=== PATIENT | female | born 1990 | race Hispanic/Latino ===

== ENCOUNTER 2022-02-22 18:20 | Emergency (ER) | payer SELFPAY ==
--- OUTSIDE RECORDS SUMMARY | 2022-02-22 18:24 | XMS REPORT | Continuity of Care Document ---
:1990 Author Organization [facility] t Address [address] [place] [address] Care Team Providers Name Role Phone FERNANDA ESPINOSA Primary Care Physician Unavailable LONI RAMIREZ Attending Clinician Unavailable Loni Ramirez DO Attending Clinician Doctor Unassigned, [place] Attending Clinician Unavailable BLAS Attending Clinician Unavailable VIET PASCUAL Attending Clinician Unavailable CODI RODRIGUES Attending Clinician Unavailable VIKTORIYA QUIROZ Attending Clinician Unavailable RANULFO BERG Attending Clinician Unavailable JULIUS LO Attending Clinician Unavailable BLAS Admitting Clinician Unavailable Payers Payer Name Policy Type Policy Number Effective Date Expiration Date S [facility] - [id number] 2019 00:00:00 OUT OF STATE Problems Condition Condition Condition Status Onset Resolution Last Treating Co mments Source Name Details Category Date Date Treatment Clinician Date No known No known Disease Unive rs active active ity of problems problems [facility] Allergies, Adverse Reactions, Alerts Allergy Allergy Status Severity Reaction(s) Onset Inactive Treating Comm ents Source Name Type Date Date Clinician NO KNOWN Drug Active Univers ALLERGIE Class ity of S [facility] Social History Social Habit Start Date Stop Date Quantity Comments Source History of tobacco Cigarette Smoker University of use [facility] Exposure to 2022-01-26 2022-02-05 Not sure [facility]-CoV-2 (event) 00:00:00 20:15:00 [facility] Alcohol intake 2022-02-05 2022-02-05 Ex-drinker [facility] 00:00:00 00:00:00 (finding) [facility] Cigarettes smoked 2020-02-11 2020-02-11 Univers ity of current (pack per 00:00:00 00:00:00 [facility] ) - Reported Branch Tobacco use and 2020-02-11 2020-02-11 Smokeless Universit y of exposure 00:00:00 00:00:00 tobacco non-user [facility] dical [place] Sex Assigned At [birth year] Universit y of 00:00:00 00:00:00 [facility] Smoking Status Start Date Stop Date Source Smokes tobacco daily 2020-02-11 00:00:00 Univers ity of [facility] Medications Ordered Filled Start Stop Current Ordering Indication Dosage Frequency Signature Comments Components Source Medication Medication Date Date Medication? Clinician (SIG) Name Name cyclobenzap 2021-04 Yes [id number] 10mg Take 1 Univers rine 10 mg 0-10 tablet by ity of tablet 00:00: mouth 3 [place] (three) Medical times [place] daily as needed for Muscle Spasms. TAKE 1 2021-0 No 50 TABLET 8-29 DAILY. 00:00: 00 TAKE 1 2021-0 No TABLET 8-29 DAILY. 00:00: 00 TAKE 1 2021-0 No TABLET 8-29 DAILY. 00:00: 00 TAKE 1 2021-0 No 5 TABLET BY 8-19 MOUTH 2 00:00: HOURS PRIOR 00 TO SURGERY. TAKE 1 2021-0 No 5 TABLET BY 8-19 MOUTH 2 00:00: HOURS PRIOR 00 TO SURGERY. TAKE 1 2021-0 No 5 TABLET BY 8-19 MOUTH 2 00:00: HOURS PRIOR 00 TO SURGERY. &lt 2022-0 No 250 8-04 00:00: 00 TAKE ONE 2-0 No 875 (1) 8-04 TABLET(S) 00:00: BY MOUTH 00 TWICE A DAY. &lt 2022-0 No 250 8-04 00:00: 00 &lt 2022-0 No 250 8-04 00:00: 00 TAKE ONE 2-0 No 875 (1) 8-04 TABLET(S) 00:00: BY MOUTH 00 TWICE A DAY. TAKE ONE 2-0 No 875 (1) 8-04 TABLET(S) 00:00: BY MOUTH 00 TWICE A DAY. Dose 2021-0 No Unknown 09-26 00:00: 00 Dose 2021-0 No Unknown 09-26 00:00: 00 Dose 2021-0 No Unknown 09-26 00:00: 00 Dose 2021-0 No Unknown 09-26 00:00: 00 Dose 2021-0 No Unknown 09-26 00:00: 00 Dose 2021-0 No Unknown 09-26 00:00: 00 Dose 2021-0 No Unknown 09-26 00:00: 00 Dose 2021-0 No Unknown 09-26 00:00: 00 Dose 2021-0 No Unknown 09-26 00:00: 00 Dose 2021-0 No Unknown 09-26 00:00: 00 Dose 2021-0 No Unknown 09-26 00:00: 00 Dose 2021-0 No Unknown 09-26 00:00: 00 benzonatate 2019- Yes [id number] 100mg Take 1 Univers (TESSALON 0-15 capsule by [employer]) 100 00:00: mouth 3 Naseem as mg capsule 00 (three) Medica l times Branch daily. benzonatate 2019-04 Yes [id number] 100mg Take 1 Univers (TESSALON 0-15 capsule by [employer]) 100 00:00: mouth 3 Naseem as mg capsule 00 (three) Medica l times Branch daily. Dose 2017-0 No Unknown 08-07 00:00: 00 ketoconazol 2017-0 No 1% e 2 % 08-07 topical 00:00: cream 00 Dose 2018-0 No Unknown 08-07 00:00: 00 Vital Signs Vital Name Observation Time Observation Value Comments Source Systolic blood 2022-02-06 01:16:00 120 [facility] Diastolic blood 2022-02-06 01:16:00 96 mm[Hg] [facility] Heart rate 2022-02-06 01:16:00 96 /min [facility] Body temperature 2022-02-06 01:16:00 36.89 [facility] Respiratory rate 2022-02-06 01:16:00 20 /min [facility] Body height 2022-02-06 01:16:00 160 cm [facility] Body weight 2022-02-06 01:16:00 127.461 kg [facility] BMI 2022-02-06 01:16:00 49.78 kg/m2 [facility] Oxygen saturation in 2022-02-06 01:16:00 98 /min University Arterial blood by [facility] Pulse oximetry Branch BP Systolic 2021-11-30 17:52:00 114 mm[Hg] BP Diastolic 2021-11-30 17:52:00 81 mm[Hg] Weight Measured 2021-11-30 17:52:00 292.40 pounds Height Measured 2021-11-30 17:52:00 63.50 inches Body Temperature 2021-11-30 17:52:00 98.10 degrees Heart Rate 2021-11-30 17:52:00 95.00 /min Respiratory Rate 2021-11-30 17:52:00 16.00 /min BP Systolic 2021-09-26 11:29:00 83 mm[Hg] BP Diastolic 2021-09-26 11:29:00 58 mm[Hg] Weight Measured 2021-09-26 11:29:00 293.40 pounds Height Measured 2021-09-26 11:29:00 63.50 inches Body Temperature 2021-09-26 11:29:00 97.80 degrees Heart Rate 2021-09-26 11:29:00 93.00 /min Respiratory Rate 2021-09-26 11:29:00 16.00 /min BP Systolic 2017-08-13 10:14:00 137 mm[Hg] BP Diastolic 2017-08-13 10:14:00 81 mm[Hg] Weight Measured 2017-08-13 10:14:00 283.00 pounds Height Measured 2017-08-13 10:14:00 63.50 inches Body Temperature 2017-08-13 10:14:00 97.70 degrees Heart Rate 2017-08-13 10:14:00 89.00 /min Respiratory Rate 2017-08-13 10:14:00 16.00 /min BP Systolic 2017-08-07 10:10:00 116 mm[Hg] BP Diastolic 2017-08-07 10:10:00 77 mm[Hg] Weight Measured 2017-08-07 10:10:00 282.00 pounds Height Measured 2017-08-07 10:10:00 63.50 inches Body Temperature 2017-08-07 10:10:00 98.50 degrees Heart Rate 2017-08-07 10:10:00 98.00 /min Respiratory Rate 2017-08-07 10:10:00 16.00 /min Procedures Procedure Date / Time Performed Performing Clinician [facility] liza NOTICE OF PRIVACY 2022-02-06 01:08:20 Doctor Unassigned, No Univ ersity [facility] PRACTICES Name Medical Branch CONSENT/REFUSAL FOR 2022-02-06 01:08:02 [facility] Branch TREATMENT Plan of Care Planned Activity Planned Date Details Comments Source Goal Plan of Care Note [code = 87501-9] Goal Plan of Care Note [code = 55260-2] Goal Plan of Care Note [code = 16537-5] Goal Plan of Care Note [code = 83155-9] Goal Plan of Care Note [code = 40142-0] Goal Plan of Care Note [code = 21924-8] Goal Plan of Care Note [code = 07060-8] Goal Plan of Care Note [code = 34385-7] Goal Plan of Care Note [code = 33745-1] Goal Plan of Care Note [code = 48509-4] Goal Plan of Care Note [code = 33393-0] Goal Plan of Care Note [code = 88358-0] Goal Plan of Care Note [code = 19118-1] Goal Plan of Care Note [code = 68529-8] Goal Plan of Care Note [code = 70366-8] Goal Plan of Care Note [code = 50604-9] Goal Plan of Care Note [code = 30651-2] Goal Plan of Care Note [code = 48521-4] Goal Plan of Care Note [code = 87901-5] Goal Plan of Care Note [code = 00875-0] Goal Plan of Care Note [code = 35746-6] Goal Plan of Care Note [code = 24722-4] Goal Plan of Care Note [code = 33079-1] Goal Plan of Care Note [code = 27591-8] Goal Plan of Care Note [code = 82631-9] Goal Plan of Care Note [code = 86191-9] Goal Plan of Care Note [code = 27508-4] Goal Plan of Care Note [code = 29122-6] Goal Plan of Care Note [code = 60094-4] Goal Plan of Care Note [code = 33599-5] Goal Plan of Care Note [code = 58122-9] Goal Plan of Care Note [code = 91338-0] Goal Plan of Care Note [code = 72225-7] Goal Plan of Care Note [code = 62134-3] Goal Plan of Care Note [code = 31386-7] Goal Plan of Care Note [code = 02941-2] Goal Plan of Care Note [code = 67405-2] Goal Plan of Care Note [code = 32619-1] Goal Plan of Care Note [code = 07386-7] Goal Plan of Care Note [code = 16164-7] Encounters Start End Encounter Admission Attending Care Care Encounter Source Date/Time Date/Time Type Type Clinicians Facility Department ID 2022-02-05 2022-02-05 [facility] [id number] Univers 20:21:00 20:45:[address] [facility] 2022-02-05 2022-02-05 Emergency [facility] [id number] Univers 20:21:00 20:45:00 Loni HUDSON [id number] ity [facility] [id number] [facility] [id number] [facility] 084 Branch 2022-02-05 2022-02-05 Orders Doctor JOSE R [id number] Univers 00:00:00 00:00:00 Only Unassigned, JAZMIN 350.1.13.10 ity of [place] [facility] 4.2.7.2.686 [facility] [id number] [facility] 009 Branch 2022-01-29 2022-01-29 Outpatient [facility] SFA [id number] Goldy 13:58:34 13:58:34 1003 F Alber 2022-01-29 2022-01-29 Outpatient [id number] 00:00:00 00:00:00 Visit [id number] 2021-12-15 2021-12-15 Outpatient [id number] 00:00:00 00:00:00 Visit [id number] 2021-11-30 2021-11-30 Outpatient [id number] 00:00:00 00:00:00 Visit [id number]-[id number] 2021-05-24 2021-05-24 Outpatient [facility] [address] 05:17:00 05:17:00 H 0126 [facility] 2020-12-18 2020-12-18 Outpatient R [facility] [id number] Univers 14:00:00 14:00:00 , VIET [facility] 2020-11-14 2020-11-14 Outpatient R RAVI [facility] [id number] Univers 17:40:00 17:40:00 CODI [facility] 2020-02-11 2020-02-11 Outpatient R GABRIELLA [facility] [id number] Univers 15:00:00 15:00:00 VIKTORIYA buck o f [facility] 2020-01-01 2020-01-01 [id number] Univers 15:00:00 15:00:00 RANULFO [facility] 2020-01-01 2020-01-01 Outpatient R TERESITA [facility] [id number] Univers 08:00:00 08:00:00 JULIUS [facility] Results Test Description Test Time Test Comments Results Result Comments Source HPV HIGH RISK WITH GENOTYPE, TP 2017-08-09 00:00:00 Test Item Value Reference Range Interpretation Comme nts HPV HIGH RISK INTERP (test code = 07811) NEGATIVE HPV 16 (test code = 03315) NEGATIVE HPV 18 (test code = 92585) NEGATIVE HPV, HR, OTHER GENOTYPES (test code = 55946) NEGATIVE [id number] 00:00:00 Test Item Value Reference Range Interpretation Comments TSH (test code = 2821) 2.590 UIU/ML [id number] 00:00:00 Test Item Value Reference Range Interpretation Comments TSH (test code = 2821) 2.590 UIU/ML [id number] 00:00:00 Test Item Value Reference Range Interpretation Comments TSH (test code = 2821) 2.590 UIU/ML FSH + LH [id number] 00:00:00 Test Item Value Reference Range Interpretation Comments FOLLICLE STIM HORMONE (test code = 7.5 IU/L 2700) LUTEINIZING HORMONE (test code = 8.3 IU/L 2776) FSH + LH [id number] 00:00:00 Test Item Value Reference Range Interpretation Comments FOLLICLE STIM HORMONE (test code = 7.5 IU/L 2700) LUTEINIZING HORMONE (test code = 8.3 IU/L 2776) COMPREHENSIVE METABOLIC PANEL [ADDED]2017-08-09 00:00:00 Test Item Value Reference Range Interpretation Comments GLUCOSE (test code = 2217) 76 MG/DL BUN (test code = 2208) 11 MG/DL CREATININE (test code = 2214) 0.58 MG/DL eGFR AMER. (test code 146 ML/MIN/1.73 = 03633) eGFR NON- AMER. (test 126 ML/MIN/1.73 code = 56213) CALC BUN/CREAT (test code = 19 RATIO 2235) SODIUM (test code = 2231) 139 MEQ/L POTASSIUM (test code = 2228) 3.9 MEQ/L CHLORIDE (test code = 2215) 99 MEQ/L CARBON DIOXIDE (test code = 25 MEQ/L 2206) CALCIUM (test code = 2209) 8.7 MG/DL PROTEIN, TOTAL (test code = 7.6 G/DL 2228) ALBUMIN (test code = 2201) 4.3 G/DL CALC GLOBULIN (test code = 3.3 G/DL 2240) CALC A/G RATIO (test code = 1.3 RATIO 2234) BILIRUBIN, TOTAL (test code = 0.2 MG/DL 2206) ALKALINE PHOSPHATASE (test 84 U/L code = 2204) AST (test code = 2218) 36 U/L ALT (test code = 2219) 19 U/L COMPREHENSIVE METABOLIC PANEL [ADDED]2017-08-09 00:00:00 Test Item Value Reference Range Interpretation Comments GLUCOSE (test code = 2217) 76 MG/DL BUN (test code = 2208) 11 MG/DL CREATININE (test code = 2214) 0.58 MG/DL eGFR AMER. (test code 146 ML/MIN/1.73 = 66929) eGFR NON- AMER. (test 126 ML/MIN/1.73 code = 72565) CALC BUN/CREAT (test code = 19 RATIO 2235) SODIUM (test code = 2231) 139 MEQ/L POTASSIUM (test code = 2228) 3.9 MEQ/L CHLORIDE (test code = 2215) 99 MEQ/L CARBON DIOXIDE (test code = 25 MEQ/L 2206) CALCIUM (test code = 2209) 8.7 MG/DL PROTEIN, TOTAL (test code = 7.6 G/DL 222) ALBUMIN (test code = 2201) 4.3 G/DL CALC GLOBULIN (test code = 3.3 G/DL 2240) CALC A/G RATIO (test code = 1.3 RATIO 2234) BILIRUBIN, TOTAL (test code = 0.2 MG/DL 220) ALKALINE PHOSPHATASE (test 84 U/L code = 2204) AST (test code = 2218) 36 U/L ALT (test code = 2219) 19 U/L LIPID PANEL [ADDED]2017-08-09 00:00:00 Test Item Value Reference Range Interpretation Comments CHOLESTEROL (test code = 2210) 173 MG/DL TRIGLYCERIDES (test code = 2232) 70 MG/DL HDL CHOLESTEROL (test code = 2220) 41 MG/DL CALC LDL CHOL (test code = 2237) 118 MG/DL RISK RATIO LDL/HDL (test code = 2.88 RATIO 2238) LIPID PANEL [ADDED]2017-08-09 00:00:00 Test Item Value Reference Range Interpretation Comments CHOLESTEROL (test code = 2210) 173 MG/DL TRIGLYCERIDES (test code = 2232) 70 MG/DL HDL CHOLESTEROL (test code = 2220) 41 MG/DL CALC LDL CHOL (test code = 2237) 118 MG/DL RISK RATIO LDL/HDL (test code = 2.88 RATIO 2238) HEMOGLOBIN A1c [ADDED]2017-08-09 00:00:00 Test Item Value Reference Range Interpretation Comments HEMOGLOBIN A1c (test code = 24098) 5.3 % HEMOGLOBIN A1c [ADDED]2017-08-09 00:00:00 Test Item Value Reference Range Interpretation Comments HEMOGLOBIN A1c (test code = 41098) 5.3 % HEMOGLOBIN A1c [ADDED]2017-08-09 00:00:00 Test Item Value Reference Range Interpretation Comments HEMOGLOBIN A1c (test code = 78552) 5.3 % DHEA [id number] 00:00:00 Test Item Value Reference Range Interpretation Comments DHEA SULFATE (test code = 4225) 158 UG/DL GC AND CHLAMYDIA AMPLIFIED, [id number] 00:00:00 Test Item Value Reference Range Interpretation Comments GONORRHEA, TMA (test code = 32421) NEGATIVE CHLAMYDIA, TMA (test code = 09879) NEGATIVE DHEA [id number] 00:00:00 Test Item Value Reference Range Interpretation Comments DHEA SULFATE (test code = 4225) 158 UG/DL GC AND CHLAMYDIA AMPLIFIED, [id number] 00:00:00 Test Item Value Reference Range Interpretation Comments GONORRHEA, TMA (test code = 04880) NEGATIVE CHLAMYDIA, TMA (test code = 33948) NEGATIVE DHEA [id number] 00:00:00 Test Item Value Reference Range Interpretation Comments DHEA SULFATE (test code = 4225) 158 UG/DL DHEA [id number] 00:00:00 Test Item Value Reference Range Interpretation Comments DHEA SULFATE (test code = 4225) 158 UG/DL GC AND CHLAMYDIA AMPLIFIED, [id number] 00:00:00 Test Item Value Reference Range Interpretation Comments GONORRHEA, TMA (test code = 85295) NEGATIVE CHLAMYDIA, TMA (test code = 30058) NEGATIVE PAP TEST, THINPREP, [id number] 00:00:00 Test Item Value Reference Range Interpretation Comments SOURCE: (test code = Cervical/Endocervical 8001) SLIDES: (test code = 1 8011) LMP: (test code = 08/01/2017 8021) SPECIMEN ADEQUACY: (NOTE) (test code = 60035) INTERPRETATION: (test NO EPITHELIAL code = 33474) ABNORMALITY SEE BELOW FOOD AND BEVERAGE ASSISTANT: Theresa (test code = 8101) MASON Hdz(ASCP)IAC LOCATION: (test code (NOTE) = 08702) CPT: (test code = (NOTE) 8140) [id number] 00:00:00 Test Item Value Reference Range Interpretation Comments TESTOSTERONE (test code = 2830) 30 NG/DL PAP TEST, THINPREP, [id number] 00:00:00 Test Item Value Reference Range Interpretation Comments SOURCE: (test code = Cervical/Endocervical 8001) SLIDES: (test code = 1 8011) LMP: (test code = 08/01/2017 8021) SPECIMEN ADEQUACY: (NOTE) (test code = 55786) INTERPRETATION: (test NO EPITHELIAL code = 69303) ABNORMALITY SEE BELOW FOOD AND BEVERAGE ASSISTANT: Theresa (test code = 8101) MASON Hdz(ASCP)IAC LOCATION: (test code (NOTE) = 08635) CPT: (test code = (NOTE) 8140) [id number] 00:00:00 Test Item Value Reference Range Interpretation Comments TESTOSTERONE (test code = 2830) 30 NG/DL [id number] 00:00:00 Test Item Value Reference Range Interpretation Comments PROLACTIN (test code = 2800) 9.0 NG/ML HPV HIGH RISK WITH GENOTYPE, [id number] 00:00:00 Test Item Value Reference Range Interpretation Comments HPV HIGH RISK INTERP (test code = NEGATIVE 88317) HPV 16 (test code = 19940) NEGATIVE HPV 18 (test code = 62417) NEGATIVE HPV, HR, OTHER GENOTYPES (test code NEGATIVE = 99272) [id number] 00:00:00 Test Item Value Reference Range Interpretation Comments PROLACTIN (test code = 2800) 9.0 NG/ML HPV HIGH RISK WITH GENOTYPE, [id number] 00:00:00 Test Item Value Reference Range Interpretation Comments HPV HIGH RISK INTERP (test code = NEGATIVE 56067) HPV 16 (test code = 36642) NEGATIVE HPV 18 (test code = 48052) NEGATIVE HPV, HR, OTHER GENOTYPES (test code NEGATIVE = 80131) [id number] 00:00:00 Test Item Value Reference Range Interpretation Comments TSH (test code = 2821) 2.590 UIU/ML GC AND CHLAMYDIA AMPLIFIED, [id number] 00:00:00 Test Item Value Reference Range Interpretation Comments GONORRHEA, TMA (test code = 81482) NEGATIVE CHLAMYDIA, TMA (test code = 60055) NEGATIVE [id number] 00:00:00 Test Item Value Reference Range Interpretation Comments TSH (test code = 2821) 2.590 UIU/ML [id number] 00:00:00 Test Item Value Reference Range Interpretation Comments TSH (test code = 2821) 2.590 UIU/ML FSH + LH [id number] 00:00:00 Test Item Value Reference Range Interpretation Comments FOLLICLE STIM HORMONE (test code = 7.5 IU/L 2700) LUTEINIZING HORMONE (test code = 8.3 IU/L 2776) FSH + LH [id number] 00:00:00 Test Item Value Reference Range Interpretation Comments FOLLICLE STIM HORMONE (test code = 7.5 IU/L 2700) LUTEINIZING HORMONE (test code = 8.3 IU/L 2776) COMPREHENSIVE METABOLIC PANEL [ADDED]2017-08-09 00:00:00 Test Item Value Reference Range Interpretation Comments GLUCOSE (test code = 2217) 76 MG/DL BUN (test code = 2208) 11 MG/DL CREATININE (test code = 2214) 0.58 MG/DL eGFR AMER. (test code 146 ML/MIN/1.73 = 17384) eGFR NON- AMER. (test 126 ML/MIN/1.73 code = 32428) CALC BUN/CREAT (test code = 19 RATIO 2235) SODIUM (test code = 2231) 139 MEQ/L POTASSIUM (test code = 2228) 3.9 MEQ/L CHLORIDE (test code = 2215) 99 MEQ/L CARBON DIOXIDE (test code = 25 MEQ/L 2205) CALCIUM (test code = 2209) 8.7 MG/DL PROTEIN, TOTAL (test code = 7.6 G/DL 2228) ALBUMIN (test code = 2201) 4.3 G/DL CALC GLOBULIN (test code = 3.3 G/DL 2240) CALC A/G RATIO (test code = 1.3 RATIO 2234) BILIRUBIN, TOTAL (test code = 0.2 MG/DL 2206) ALKALINE PHOSPHATASE (test 84 U/L code = 2204) AST (test code = 2218) 36 U/L ALT (test code = 2219) 19 U/L COMPREHENSIVE METABOLIC PANEL [ADDED]2017-08-09 00:00:00 Test Item Value Reference Range Interpretation Comments GLUCOSE (test code = 2217) 76 MG/DL BUN (test code = 2208) 11 MG/DL CREATININE (test code = 2214) 0.58 MG/DL eGFR AMER. (test code 146 ML/MIN/1.73 = 68647) eGFR NON- AMER. (test 126 ML/MIN/1.73 code = 30130) CALC BUN/CREAT (test code = 19 RATIO 2235) SODIUM (test code = 2231) 139 MEQ/L POTASSIUM (test code = 2228) 3.9 MEQ/L CHLORIDE (test code = 2215) 99 MEQ/L CARBON DIOXIDE (test code = 25 MEQ/L 220) CALCIUM (test code = 2209) 8.7 MG/DL PROTEIN, TOTAL (test code = 7.6 G/DL 2228) ALBUMIN (test code = 2201) 4.3 G/DL CALC GLOBULIN (test code = 3.3 G/DL 224) CALC A/G RATIO (test code = 1.3 RATIO 223) BILIRUBIN, TOTAL (test code = 0.2 MG/DL 2206) ALKALINE PHOSPHATASE (test 84 U/L code = 2204) AST (test code = 2218) 36 U/L ALT (test code = 2219) 19 U/L LIPID PANEL [ADDED]2017-08-09 00:00:00 Test Item Value Reference Range Interpretation Comments CHOLESTEROL (test code = 2210) 173 MG/DL TRIGLYCERIDES (test code = 2232) 70 MG/DL HDL CHOLESTEROL (test code = 2220) 41 MG/DL CALC LDL CHOL (test code = 2237) 118 MG/DL RISK RATIO LDL/HDL (test code = 2.88 RATIO 2238) LIPID PANEL [ADDED]2017-08-09 00:00:00 Test Item Value Reference Range Interpretation Comments CHOLESTEROL (test code = 2210) 173 MG/DL TRIGLYCERIDES (test code = 2232) 70 MG/DL HDL CHOLESTEROL (test code = 2220) 41 MG/DL CALC LDL CHOL (test code = 2237) 118 MG/DL RISK RATIO LDL/HDL (test code = 2.88 RATIO 2238) HEMOGLOBIN A1c [ADDED]2017-08-09 00:00:00 Test Item Value Reference Range Interpretation Comments HEMOGLOBIN A1c (test code = 97465) 5.3 % HEMOGLOBIN A1c [ADDED]2017-08-09 00:00:00 Test Item Value Reference Range Interpretation Comments HEMOGLOBIN A1c (test code = 25995) 5.3 % PAP TEST, THINPREP, [id number] 00:00:00 Test Item Value Reference Range Interpretation Comments SOURCE: (test code = Cervical/Endocervical 8001) SLIDES: (test code = 1 8011) LMP: (test code = 08/01/2017 8021) SPECIMEN ADEQUACY: (NOTE) (test code = 08688) INTERPRETATION: (test NO EPITHELIAL code = 23946) ABNORMALITY SEE BELOW FOOD AND BEVERAGE ASSISTANT: Theresa (test code = 8101) MASON Hdz(ASCP)IAC LOCATION: (test code (NOTE) = 70715) CPT: (test code = (NOTE) 8140) HEMOGLOBIN A1c [ADDED]2017-08-09 00:00:00 Test Item Value Reference Range Interpretation Comments HEMOGLOBIN A1c (test code = 83855) 5.3 % [id number] 00:00:00 Test Item Value Reference Range Interpretation Comments TESTOSTERONE (test code = 2830) 30 NG/DL PAP TEST, THINPREP, [id number] 00:00:00 Test Item Value Reference Range Interpretation Comments SOURCE: (test code = Cervical/Endocervical 8001) SLIDES: (test code = 1 8011) LMP: (test code = 08/01/2017 8021) SPECIMEN ADEQUACY: (NOTE) (test code = 37260) INTERPRETATION: (test NO EPITHELIAL code = 48529) ABNORMALITY SEE BELOW FOOD AND BEVERAGE ASSISTANT: Theresa (test code = 8101) MASON Hdz(ASCP)IAC LOCATION: (test code (NOTE) = 95248) CPT: (test code = (NOTE) 8140) [id number] 00:00:00 Test Item Value Reference Range Interpretation Comments TESTOSTERONE (test code = 2830) 30 NG/DL [id number] 00:00:00 Test Item Value Reference Range Interpretation Comments PROLACTIN (test code = 2800) 9.0 NG/ML HPV HIGH RISK WITH GENOTYPE, [id number] 00:00:00 Test Item Value Reference Range Interpretation Comments HPV HIGH RISK INTERP (test code = NEGATIVE 16411) HPV 16 (test code = 29241) NEGATIVE HPV 18 (test code = 53558) NEGATIVE HPV, HR, OTHER GENOTYPES (test code NEGATIVE = 86967) [id number] 00:00:00 Test Item Value Reference Range Interpretation Comments PROLACTIN (test code = 2800) 9.0 NG/ML HPV HIGH RISK WITH GENOTYPE, [id number] 00:00:00 Test Item Value Reference Range Interpretation Comments HPV HIGH RISK INTERP (test code = NEGATIVE 67366) HPV 16 (test code = 35007) NEGATIVE HPV 18 (test code = 55878) NEGATIVE HPV, HR, OTHER GENOTYPES (test code NEGATIVE = 23167) [id number] 00:00:00 Test Item Value Reference Range Interpretation Comments TSH (test code = 2821) 2.590 UIU/ML [id number] 00:00:00 Test Item Value Reference Range Interpretation Comments TSH (test code = 2821) 2.590 UIU/ML [id number] 00:00:00 Test Item Value Reference Range Interpretation Comments TSH (test code = 2821) 2.590 UIU/ML FSH + LH [id number] 00:00:00 Test Item Value Reference Range Interpretation Comments FOLLICLE STIM HORMONE (test code = 7.5 IU/L 2700) LUTEINIZING HORMONE (test code = 8.3 IU/L 2776) FSH + LH [id number] 00:00:00 Test Item Value Reference Range Interpretation Comments FOLLICLE STIM HORMONE (test code = 7.5 IU/L 2700) LUTEINIZING HORMONE (test code = 8.3 IU/L 2776) COMPREHENSIVE METABOLIC PANEL [ADDED]2017-08-09 00:00:00 Test Item Value Reference Range Interpretation Comments GLUCOSE (test code = 2217) 76 MG/DL BUN (test code = 2208) 11 MG/DL CREATININE (test code = 2214) 0.58 MG/DL eGFR AMER. (test code 146 ML/MIN/1.73 = 81335) eGFR NON- AMER. (test 126 ML/MIN/1.73 code = 93829) CALC BUN/CREAT (test code = 19 RATIO 2235) SODIUM (test code = 2231) 139 MEQ/L POTASSIUM (test code = 2228) 3.9 MEQ/L CHLORIDE (test code = 2215) 99 MEQ/L CARBON DIOXIDE (test code = 25 MEQ/L 2206) CALCIUM (test code = 2209) 8.7 MG/DL PROTEIN, TOTAL (test code = 7.6 G/DL 222) ALBUMIN (test code = 2201) 4.3 G/DL CALC GLOBULIN (test code = 3.3 G/DL 2240) CALC A/G RATIO (test code = 1.3 RATIO 2234) BILIRUBIN, TOTAL (test code = 0.2 MG/DL 220) ALKALINE PHOSPHATASE (test 84 U/L code = 2204) AST (test code = 2218) 36 U/L ALT (test code = 2219) 19 U/L COMPREHENSIVE METABOLIC PANEL [ADDED]2017-08-09 00:00:00 Test Item Value Reference Range Interpretation Comments GLUCOSE (test code = 2217) 76 MG/DL BUN (test code = 2208) 11 MG/DL CREATININE (test code = 2214) 0.58 MG/DL eGFR AMER. (test code 146 ML/MIN/1.73 = 00508) eGFR NON- AMER. (test 126 ML/MIN/1.73 code = 29595) CALC BUN/CREAT (test code = 19 RATIO 2235) SODIUM (test code = 2231) 139 MEQ/L POTASSIUM (test code = 2228) 3.9 MEQ/L CHLORIDE (test code = 2215) 99 MEQ/L CARBON DIOXIDE (test code = 25 MEQ/L 2206) CALCIUM (test code = 2209) 8.7 MG/DL PROTEIN, TOTAL (test code = 7.6 G/DL 222) ALBUMIN (test code = 2201) 4.3 G/DL CALC GLOBULIN (test code = 3.3 G/DL 2240) CALC A/G RATIO (test code = 1.3 RATIO 2234) BILIRUBIN, TOTAL (test code = 0.2 MG/DL 2207) ALKALINE PHOSPHATASE (test 84 U/L code = 2204) AST (test code = 2218) 36 U/L ALT (test code = 2219) 19 U/L LIPID PANEL [ADDED]2017-08-09 00:00:00 Test Item Value Reference Range Interpretation Comments CHOLESTEROL (test code = 2210) 173 MG/DL TRIGLYCERIDES (test code = 2232) 70 MG/DL HDL CHOLESTEROL (test code = 2220) 41 MG/DL CALC LDL CHOL (test code = 2237) 118 MG/DL RISK RATIO LDL/HDL (test code = 2.88 RATIO 2238) LIPID PANEL [ADDED]2017-08-09 00:00:00 Test Item Value Reference Range Interpretation Comments CHOLESTEROL (test code = 2210) 173 MG/DL TRIGLYCERIDES (test code = 2232) 70 MG/DL HDL CHOLESTEROL (test code = 2220) 41 MG/DL CALC LDL CHOL (test code = 2237) 118 MG/DL RISK RATIO LDL/HDL (test code = 2.88 RATIO 2238) HEMOGLOBIN A1c [ADDED]2017-08-09 00:00:00 Test Item Value Reference Range Interpretation Comments HEMOGLOBIN A1c (test code = 11496) 5.3 % HEMOGLOBIN A1c [ADDED]2017-08-09 00:00:00 Test Item Value Reference Range Interpretation Comments HEMOGLOBIN A1c (test code = 03564) 5.3 % HEMOGLOBIN A1c [ADDED]2017-08-09 00:00:00 Test Item Value Reference Range Interpretation Comments HEMOGLOBIN A1c (test code = 20627) 5.3 % GC AND CHLAMYDIA AMPLIFIED, [id number] 00:00:00 Test Item Value Reference Range Interpretation Comments GONORRHEA, TMA (test code = 88722) NEGATIVE CHLAMYDIA, TMA (test code = 44698) NEGATIVE DHEA [id number] 00:00:00 Test Item Value Reference Range Interpretation Comments DHEA SULFATE (test code = 4225) 158 UG/DL GC AND CHLAMYDIA AMPLIFIED, [id number] 00:00:00 Test Item Value Reference Range Interpretation Comments GONORRHEA, TMA (test code = 80736) NEGATIVE CHLAMYDIA, TMA (test code = 36620) NEGATIVE DHEA [id number] 00:00:00 Test Item Value Reference Range Interpretation Comments DHEA SULFATE (test code = 4225) 158 UG/DL [id number] 00:00:00 Test Item Value Reference Range Interpretation Comments TESTOSTERONE (test code = 2830) 30 NG/DL PAP TEST, THINPREP, [id number] 00:00:00 Test Item Value Reference Range Interpretation Comments SOURCE: (test code = Cervical/Endocervical 8001) SLIDES: (test code = 1 8011) LMP: (test code = 08/01/2017 8021) SPECIMEN ADEQUACY: (NOTE) (test code = 38157) INTERPRETATION: (test NO EPITHELIAL code = 62094) ABNORMALITY SEE BELOW FOOD AND BEVERAGE ASSISTANT: Theresa (test code = 8101) MASON Hdz(ASCP)IAC LOCATION: (test code (NOTE) = 94284) CPT: (test code = (NOTE) 8140) [id number] 00:00:00 Test Item Value Reference Range Interpretation Comments TESTOSTERONE (test code = 2830) 30 NG/DL PAP TEST, THINPREP, [id number] 00:00:00 Test Item Value Reference Range Interpretation Comments SOURCE: (test code = Cervical/Endocervical 8001) SLIDES: (test code = 1 8011) LMP: (test code = 08/01/2017 8021) SPECIMEN ADEQUACY: (NOTE) (test code = 06662) INTERPRETATION: (test NO EPITHELIAL code = 11023) ABNORMALITY SEE BELOW FOOD AND BEVERAGE ASSISTANT: Theresa (test code = 8101) MASON Hdz(ASCP)IAC LOCATION: (test code (NOTE) = 85849) CPT: (test code = (NOTE) 8140) [id number] 00:00:00 Test Item Value Reference Range Interpretation Comments PROLACTIN (test code = 2800) 9.0 NG/ML HPV HIGH RISK WITH GENOTYPE, [id number] 00:00:00 Test Item Value Reference Range Interpretation Comments HPV HIGH RISK INTERP (test code = NEGATIVE 90073) HPV 16 (test code = 52264) NEGATIVE HPV 18 (test code = 70467) NEGATIVE HPV, HR, OTHER GENOTYPES (test code NEGATIVE = 49331) [id number] 00:00:00 Test Item Value Reference Range Interpretation Comments PROLACTIN (test code = 2800) 9.0 NG/ML
[2022-02-22 19:31] LABS: Absolute Lymphocytes (CBC) 2.8 K/uL (0.7-4.9); Hematocrit 42.6 % (36.0-45.0); MPV 8.4 fL (7.6-11.3); RBC Red Blood Cell Count 5.53 M/uL (3.86-4.86)
--- NOTE | 2022-02-22 19:44 | RAD REPORT ---
EXAM DESCRIPTION: RAD - Chest Single View - 02/22/2022 7:27 pm CLINICAL HISTORY: DYSPNEA Chest pain. COMPARISON: CHEST PA AND LAT 2 VIEW dated 02/03/2014; CHEST PA AND LAT 2 VIEW dated 06/21/2007 FINDINGS: Portable technique limits examination quality. Interstitial markings are mildly prominent suggesting a viral pneumonitis. The heart is normal in siz e. No displaced fractures.
[2022-02-22 19:49] LABS: Potassium 3.6 mmol/L (3.5-5.1)
[2022-02-22 20:33] LABS: Urine Blood Negative (Negative); Urine Glucose Negative (Negative); Urine Protein Negative (Negative); Urine Specific Gravity 1.025 (1.005-1.030); Urine pH 5.5 (5.0-7.0)
--- NOTE | 2022-02-22 21:49 | RAD REPORT ---
EXAM DESCRIPTION: CT - Chest For Pe Angio - 02/22/2022 9:37 pm CLINICAL HISTORY: Chest pain. chest pain, sob COMPARISON: No comparisons TECHNIQUE: CT angiogram of the pulmonary arteries was performed with MIP. All CT scans are performed using dose optimization technique as appropriate and may include automated exposure control or mA/KV adjustment according to patient size. FINDINGS: No evidence of pulmonary thromboembolism. No acute aortic finding demonstrated. The lungs are clear. No significant pericardial or pleural fluid. No concerning bony finding. IMPRESSION: No evidence of pulmonary thromboembolism. No acute lung findings.
--- NOTE | 2022-02-22 21:56 | ER ---
Nurse's Notes [facility] Name: Lynda Dia Age: 31 yrs Sex: Female : 1990 Arrival Date: 02/22/2022 Time: 18:25 Bed 15 Private MD: Diagnosis: Shortness of breath;Acute interstitial pneumonitis-SARS Presentation: 02/22 18:38 Chief complaint: Patient states: Pt reports testing positive for covid on 02/14, went kb3 back to work today and is experiencing left middle back pain. Was instructed to come to ED by PCP for possible blood clot. Coronavirus screen: Vaccine status: Patient reports receiving the 2nd dose of the covid vaccine. Client denies travel out of the [place] in the last 14 days. Ebola Screen: Patient negative for fever greater than or equal to 101.5 degrees Fahrenheit, and additional compatible Ebola Virus Disease symptoms Patient denies exposure to infectious person. Patient denies travel to an Ebola-affected area in the 21 days before illness onset. No symptoms or risks identified at this time. Initial Sepsis Screen: Does the patient meet any 2 criteria? No. Patient's initial sepsis screen is negative. Does the patient have a suspected source of infection? No. Patient's initial sepsis screen is negative. Risk Assessment: Do you want to hurt yourself or someone else? Patient reports no desire to harm self or others. Onset of symptoms was February 22, 2022 at 12:00. 18:38 Method Of Arrival: Ambulatory 3 18:38 Acuity: TONJA 3 kb3 Triage Assessment: 18:41 General: Appears in no apparent distress. Behavior is calm, cooperative. Pain: kb3 Complains of pain in left subscapular area Pain does not radiate. Pain currently is 8 out of 10 on a pain scale. Quality of pain is described as sharp. Respiratory: Reports shortness of breath Onset: The symptoms/episode began/occurred gradually, the patient has mild shortness of breath. 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 - Social history:: Smoking status: Patient reports the use of cigarette tobacco products, smokes one-half pack cigarettes per day. Screenin:00 Abuse screen: Denies threats or abuse. Denies injuries from another. Nutritional kb3 screening: No deficits noted. Tuberculosis screening: No symptoms or risk factors identified. Fall Risk None identified. Assessment: 19:00 General: Appears in no apparent distress. Behavior is calm, cooperative, Received care kb3 of pt from day shift RNJacob MANSFIELD. See triage note. 19:00 Cardiovascular: Rhythm is regular. Respiratory: Reports shortness of breath cough that kb3 is Airway is patent Respiratory effort is even, unlabored, Breath sounds are clear bilaterally. Vital Signs: 18:38 BP 103 / 47; Pulse 92; Resp 18; Temp 96.9; Pulse Ox 100% ; Weight 127.01 kg; Height 5 kb3 ft. 3 in. (160.02 cm); Pain 8/10; 21:30 BP 122 / 76; Pulse 87; Resp 20; Pulse Ox 99% ; kb3 22:19 BP 122 / 56; Pulse 90; Resp 18; Pulse Ox 97% ; kb3 18:38 Body Mass Index 49.60 (127.01 kg, 160.02 cm) kb3 ED Course: 18:25 Patient arrived in ED. mr 18:26 Nica Basurto FNP-C is [facility]. kb 18:26 Jaxon Santiago MD is Attending Physician. kb 18:41 Triage completed. kb3 18:41 Arm band placed on right wrist. kb3 18:49 Vanessa Cunningham, WILFRIDO is Primary Nurse. ko1 19:00 Patient has correct armband on for positive identification. Bed in low position. Call kb3 light in reach. Side rails up X 1. Warm blanket given. 19:25 No provider procedures requiring assistance completed. Inserted saline lock: 20 gauge kb3 in right antecubital area, using aseptic technique. Blood collected. 19:26 D-Dimer Sent. kb3 19:26 Basic Metabolic Panel Sent. kb3 19:26 CBC with Diff Sent. kb3 19:29 Chest Single View XRAY In Process Unspecified. EDMS 20:32 PHCP role handed off by Nica Basurto FNP-C snw 20:32 Argentina Block FNP-C is PHCP. snw 21:[address] via wheelchair. kb3 21:39 CT Chest For PE Angio In Process Unspecified. EDMS 22:21 IV discontinued, intact, bleeding controlled, No redness/swelling at site. kb3 Administered Medications: No medications were administered Medication: 19:00 VIS not applicable for this client. kb3 Outcome: 21:54 Discharge ordered by MD. snw 22:21 Discharged to home ambulatory. kb3 22:21 Condition: stable 22:21 Discharge instructions given to patient, Instructed on discharge instructions, follow up and referral plans. medication usage, Demonstrated understanding of instructions, follow-up care, medications, Prescriptions given X 2. 22:22 Patient left the ED. kb3 Signatures: Dispatcher [employer] EDNJ Nica Basurto FNP-C FNP-Argentina Kendrick FNP-C FNP-Janinew Tomasz Melania mr Roopa Rubio, RN RN kb3 Vanessa Cunningham, RN RN ko1
--- NOTE | 2022-02-22 21:56 | EDPHYS ---
Physician Documentation [facility] Name: Lynda Dia Age: 31 yrs Sex: Female : 1990 Arrival Date: 02/22/2022 Time: 18:25 Bed 15 Private MD: ED Physician Jaxon Santiago HPI: 02/22 20:13 This 31 yrs old Female presents to ER via Ambulatory with complaints of kb Shortness Of Breath. 20:13 The patient has shortness of breath at rest. Onset: The symptoms/episode began/occurred kb last week. Duration: The symptoms are continuous. The patient's shortness of breath. Associated signs and symptoms: Pertinent positives: chest pain. Severity of symptoms: At their worst the symptoms were moderate in the emergency department the symptoms have improved. The patient has not experienced similar symptoms in the past. The patient has not recently seen a physician. Pt reports she had covid last week and has had continued shortness of breath. Today started having posterior chest pain as well. Spoke to her PCP who told her to come to the ER to make sure she didn't have a blood clot. 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 - Social history:: Smoking status: Patient reports the use of cigarette tobacco products, smokes one-half pack cigarettes per day. ROS: 20:13 Constitutional: Negative for fever, chills, and weight loss. kb 20:13 Cardiovascular: Positive for chest pain. 20:13 Respiratory: Positive for shortness of breath. 20:13 All other systems are negative. Exam: 20:13 Constitutional: This is a well developed, well nourished patient who is awake, alert, kb and in no acute distress. Head/Face: Normocephalic, atraumatic. ENT: Moist Mucous membranes Cardiovascular: Regular rate and rhythm with a normal S1 and S2. No gallops, murmurs, or rubs. No pulse deficits. Respiratory: Respirations even and unlabored. No increased work of breathing. Talking in full sentences Skin: Warm, dry with normal turgor. Normal color. MS/ Extremity: Pulses equal, no cyanosis. Neurovascular intact. Full, normal range of motion. Neuro: Awake and alert, GCS 15, oriented to person, place, time, and situation. Moves all extremities. Normal gait. Vital Signs: 18:38 BP 103 / 47; Pulse 92; Resp 18; Temp 96.9; Pulse Ox 100% ; Weight 127.01 kg; Height 5 kb3 ft. 3 in. (160.02 cm); Pain 8/10; 21:30 BP 122 / 76; Pulse 87; Resp 20; Pulse Ox 99% ; kb3 22:19 BP 122 / 56; Pulse 90; Resp 18; Pulse Ox 97% ; kb3 18:38 Body Mass Index 49.60 (127.01 kg, 160.02 cm) kb3 MDM: 18:39 Patient medically screened. kb 20:13 Data reviewed: vital signs, nurses notes. Data interpreted: Pulse oximetry: on room air kb is 100 %. Interpretation: normal. 20:32 Transition of care: Care assumed from Nica Basurto [facility]. snw 20:47 Transition of care: After a detail discussion of the patient's case, care is kb transferred to Argentina Block [facility]. 02/22 18:40 Order name: CBC with Diff; Complete Time: 19:48 kb 02/22 18:40 Order name: Basic Metabolic Panel; Complete Time: 19:50 kb 02/22 18:40 Order name: D-Dimer; Complete Time: 19:51 kb 02/22 20:33 Order name: Urine Dipstick-Ancillary; Complete Time: 20:36 EDMS 02/22 22:07 Order name: Urine --Ancillary (enter results) ds4 02/22 22:10 Order name: Urine --Ancillary; Complete Time: 22:13 EDMS 02/22 18:40 Order name: Chest Single View XRAY; Complete Time: 19:48 kb 02/22 18:40 Order name: IV Start; Complete Time: 19:26 kb 02/22 19:51 Order name: CT Chest For PE Angio; Complete Time: 21:53 kb 02/22 20:27 Order name: Urine Test (obtain specimen); Complete Time: 21:08 kb Administered Medications: No medications were administered Disposition Summary: 02/22/22 21:54 Discharge Ordered Location: Home snw Condition: Stable snw Diagnosis - Shortness of breath snw - Acute interstitial pneumonitis - SARS snw Followup: snw - With: Emergency Department - When: As needed - Reason: Worsening of condition Followup: snw - With: Private Physician - When: 5 - 6 days - Reason: Recheck today's complaints, Continuance of care, Re-evaluation by your physician Discharge Instructions: - Discharge Summary Sheet snw - Shortness of Breath, Adult snw - Pneumonitis snw Forms: - Medication Reconciliation Form snw - Thank You Letter snw - Antibiotic Education snw - Prescription Opioid Use snw - Work release form kb3 Prescriptions: - albuterol sulfate 90 mcg/actuation Inhalation HFA aerosol inhaler - inhale 2 puff by INHALATION route every 6 hours; 1 canister; Refills: 0, snw Product Selection Permitted - Prednisone 20 mg Oral Tablet - take 2 tablets by ORAL route once daily for 5 days; 10 tablet; Refills: 0, snw Product Selection Permitted Signatures: Dispatcher [employer] Nica Solorio, EDDYC DIRECTOR OF CORPORATE MARKETING-Ckb Argentina Block FNP-C KYLE-Janinew Roopa Rubio, RN RN kb3
[2022-02-22 22:10] LABS: Urine Specific Gravity/Preg 1.025 (1.005-1.030)
[2022-02-22 23:28] VITALS: TEMP 96.9
[2022-02-22 23:35] VITALS: BP 122/56; O2SAT 97
== END 2022-02-22 22:22 | disposition home or self-care (01) ==
LOC: ER 18:20
DX: J84.114 Acute interstitial pneumonitis (principal)
CPT/HCPCS: 36415; 71045; 71275; 80048; 81003; 81025; 85025; 85379; 99284; Q9967

== ENCOUNTER 2023-02-20 14:41 | Emergency (ER) | payer OTHER, SELFPAY ==
--- OUTSIDE RECORDS SUMMARY | 2023-02-20 14:45 | XMS REPORT | Continuity of Care Document ---
:1990 Author Organization [facility] t Address [address] [place] [address] Care Team Providers Name Role Phone Ivan Ferguson Primary Care Physician Unavailable EMILIA BARRON Attending Clinician Unavailable SCOTTIE LAGUNAS Attending Clinician Unavailable RENAE KIM Attending Clinician Unavailable CAMILLA RODRIGUEZ Attending Clinician Unavailable MD JOSEPH Attending Clinician Unavailable MICAH WONG Attending Clinician Unavailable ALBA ANDREW Attending Clinician Unavailable AWA QUINONES Attending Clinician Unavailable CAYETANO ELLER Attending Clinician Unavailable LAB90 Attending Clinician Unavailable Doctor Unassigned, Dorr Attending Clinician Unavailable WILY RAM Attending Clinician Unavailable Pcp, Patient Does Not Have A Attending Clinician +[id number] [phone] LONI RAMIREZ Attending Clinician Unavailable Loni Ramirez DO Attending Clinician BLAS Attending Clinician Unavailable VIET PASCUAL Attending Clinician Unavailable CODI RODRIGUES Attending Clinician Unavailable IVAN QUIROZ Attending Clinician Unavailable RANULFO BERG Attending Clinician Unavailable JULIUS LO Attending Clinician Unavailable CEM_POLA Admitting Clinician Unavailable Payers Payer Name Policy Type Policy Number Effective Date Expiration Date Sergio novoa AETNA [facility] 9 [id number] 2022 00:00:00 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 Problems Condition Condition Condition Status Onset Resolution Last Treating Co mments Source Name Details Category Date Date Treatment Clinician Date ALEX ALEX Disease Active Meliza (generaliz (generaliz 10-02 Se ybold ed anxiety ed anxiety 00:00: - disorder) disorder) 00 Exte rna l Morbid Morbid Disease Active Meliza obesity obesity 10-02 Seybold 00:00: - 00 Externa l Type 2 Type 2 Disease Active Meliza diabetes diabetes 10-02 Seybol d mellitus mellitus 00:00: - without without 00 Externa complicati complicati l on, on, without without long-term long-term current current use of use of insulin insulin Long COVID Long COVID Disease Active K elsey 10-02 Seybold 00:00: - 00 Externa l No known No known Disease Unive rs active active ity of problems problems [facility] Allergies, Adverse Reactions, Alerts Allergy Allergy Status Severity Reaction(s) Onset Inactive Treating Comm ents Source Name Type Date Date Clinician Grapefru Propensi Active Other Throat Meliza it Oil ty to 10-01 swells, Seybold adverse 00:00: gets - reaction 00 itchy Externa s l Tirzepat Propensi Active Itching Kelse y cristi ty to 10-01 Seybold adverse 00:00: - reaction 00 Externa s l NO KNOWN Drug Active Univers ALLERGIE Class [facility] Social History Social Habit Start Date Stop Date Quantity Comments Source Gender identity Meliza marcoslionel - External History of tobacco Cigarette Smoker Meliza Mueller - use External Sexual orientation [facility] Alcohol intake 2023-01-11 2023-01-11 Current drinker John y ybold - 00:00:00 00:00:00 of alcohol External (finding) Alcohol Comment 2022-10-01 2022-10-01 socially Meliza Stewart ybold - 00:00:00 00:00:00 External Tobacco use and 2022-10-01 2022-10-01 Smokeless Meliza Stewart ybold - exposure 00:00:00 00:00:00 tobacco non-user External Exposure to 2022-01-26 2022-02-05 Not sure [facility]-CoV-2 (event) 00:00:00 20:15:00 [facility] History of Social 2022-02-05 2022-02-05 Univers ity of function 00:00:00 00:00:00 [facility] Cigarettes smoked 2020-02-11 2020-02-11 Univers ity of current (pack per 00:00:00 00:00:00 ) - Reported Branch Sex Ass[birth year] At [birth year] Meliza Stewart ybold - 00:00:00 00:00:00 External Smoking Status Start Date Stop Date Source Tobacco smoking [facility] xa consumption unknown Medical Bran ch Ex-smoker 2022-10-01 00:00:00 2022-10-01 Meliza Seybo ld - 00:00:00 External Smokes tobacco daily 2020-02-11 00:00:00 Univers ity of [facility] Medications Ordered Filled Start Stop Current Ordering Indication Dosage Frequency Signature Comments Components Source Medication Medication Date Date Medication? Clinician (SIG) Name Name diphenhydrA 2022- No Take by Aman RICHARDS-APAP, 01-11 mouth Seybold sleep, 16:21: 00:00 - (TYLENOL PM 12 :00 Externa EXTRA l STRENGTH OR) Doxepin HCl Yes [id number] 30{tbl} QD Take 30 Meliza 3 MG oral 9-15 tablets by Seyb old Tablet 00:00: mouth - 00 nightly as Externa needed. l Nystatin-Tr Yes [id number] Apply to Meliza iamcinolone 9-15 area twice Se ybold 193482-8.1 00:00: a day for - UNIT/GM-% 00 10 days. 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 Seybo ld Tablet 00:00: - 00 Externa l Dulaglutide Yes [id number] 4.5mg Inject 4.5 Meliza (Trulicity) 9-15 mg into Seybo ld 4.5 00:00: the skin - MG/0.5ML 00 once a Externa subcutaneou week. l s Solution Pen-injecto r Doxepin HCl 2022- No TAKE ONE K elsey 3 MG oral 01-01 (1) Seybold Tablet 00:00: 00:00 TABLET(S) - 00 :00 BY MOUTH Externa NIGHTLY l NEEDED. diphenhydrA Yes Take by Valdo RICHARDS-APAP, 12-28 mouth Seybold sleep, 13:43: - (TYLENOL PM 59 Externa EXTRA l STRENGTH OR) diphenhydrA Yes Take by Valdo RICHARDS-APAP, 12-28 mouth Seybold sleep, 13:43: - (TYLENOL PM 59 Externa EXTRA l STRENGTH OR) ASHWAGANDHA 2022- No Take by Aman anton OR 12-28 mouth Seybold 13:43: 00:00 - 56 :00 Externa l ASHWAGANDHA 2022- No Take by Aman anton OR 12-28 mouth Seybold 13:43: 00:00 - 56 :00 Externa l Norethin Yes [id number] 1{tbl} Take 1 Meliza Madhav-Eth 9- tablet by Seybold Estrad-FE 00:00: mouth - (Loestrin 00 daily. Externa Fe 05/18) l 1-20 MG-MCG oral Tablet Norethin Yes [id number] 1{tbl} Take 1 Meliza Madhav-Eth 9- tablet by Seybold Estrad-FE 00:00: mouth - (Loestrin 00 daily. Externa Fe 05/18) l 1-20 MG-MCG oral Tablet Norethin Yes [id number] 1{tbl} Take 1 Meliza Madhav-Eth 9- tablet by Seybold Estrad-FE 00:00: mouth - (Loestrin 00 daily. Externa Fe 05/18) l 1-20 MG-MCG oral Tablet diphenhydrA Yes Take by Valdo RICHARDS-APAP, 11-29 mouth Seybold sleep, 16:41: - (TYLENOL PM 27 Externa EXTRA l STRENGTH OR) ASHWAGANDHA Yes Take by Valdo daley OR 11-29 mouth Seybold 16:41: - 27 Externa l Trulicity 3 Yes [id number] 3mg Inject 3 Meliza MG/0.5ML 8-03 mg into Seybold subcutaneou 00:00: the skin - s Solution 00 once a Externa Pen-injecto week l r L-Methylfol 2022-0 Yes [id number] 1{tbl} Take 1 Meliza ate 7.5 MG 8-03 tablet by Seyb old oral Tablet 00:00: mouth - 00 daily Externa l Cyclobenzap 2022-0 Yes [id number] 5mg Q.[id number] Take 1 Meliza rine HCl 5 8-03 [id number] tablet (5 Seybold MG oral 00:00: 3D mg total) - Tablet 00 by mouth 3 Externa times l daily as needed for muscle spasms Trulicity 3 2022-0 Yes [id number] 3mg Inject 3 Meliza MG/0.5ML 8-03 mg into Seybold subcutaneou 00:00: the skin - s Solution 00 once a Externa Pen-injecto week l r L-Methylfol 2022-0 Yes [id number] 1{tbl} Take 1 Meliza ate 7.5 MG 8-03 tablet by Seyb old oral Tablet 00:00: mouth - 00 daily Externa l L-Methylfol 2022-0 Yes [id number] 1{tbl} Take 1 Meliza ate 7.5 MG 8-03 tablet by Seyb old oral Tablet 00:00: mouth - 00 daily Externa l Trulicity 3 2022-0 Yes [id number] 3mg Inject 3 Meliza MG/0.5ML 8-03 mg into Seybold subcutaneou 00:00: the skin - s Solution 00 once a Externa Pen-injecto week l r L-Methylfol 2022-0 Yes [id number] 1{tbl} Take 1 Meliza ate 7.5 MG 8-03 tablet by Seyb old oral Tablet 00:00: mouth - 00 daily Externa l Doxepin HCl 2022-0 Yes [id number] 30{tbl} QD Take 30 Meliza 3 MG oral 8-03 tablets by Seyb old Tablet 00:00: mouth - 00 nightly as Externa needed l Modafinil 3-0 Yes [id number] 200mg Take 1 K elsey 200 MG oral 8-03 tablet Seybol d Tablet 00:00: (200 mg - 00 total) by Externa mouth l daily Cyclobenzap 2022-0 Yes [id number] 5mg Q.[id number] Take 1 Meliza rine HCl 5 11-29 [id number] tablet (5 Seybold MG oral 00:00: 3D mg total) - Tablet 00 by mouth 3 Externa times l daily as needed for muscle spasms Spironolact 2022-0 Yes 50mg Take 1 Deonna ey one 50 MG 11-29 tablet (50 Seyb old oral Tablet 00:00: mg total) - 00 by mouth Externa daily l Trulicity 3 2022-0 2022- No [id number] 3mg Inject 3 Meliza MG/0.5ML 11-2915 mg into Seybold subcutaneou 00:00: 00:00 the skin - s Solution 00 :00 once a Externa Pen-injecto week l r Cyclobenzap 2022- No [id number] 5mg Q.[id number] Take 1 Meliza rine HCl 5 11-29 [id number] tablet (5 Seybold MG oral 00:00: 00:00 3D mg total) - Tablet 00 :00 by mouth 3 Externa times l daily as needed for muscle spasms Cyclobenzap 2022-0 2022- No [id number] 5mg Q.[id number] Take 1 Meliza rine HCl 5 11-29 [id number] tablet (5 Seybold MG oral 00:00: 00:00 3D mg total) - Tablet 00 :00 by mouth 3 Externa times l daily as needed for muscle spasms Doxepin HCl 2022- No [id number] 30{tbl} QD Take 30 Meliza 3 MG oral 11-29 tablets by Sey bold Tablet 00:00: 00:00 mouth - 00 :00 nightly as Externa needed l Modafinil 2022-0 2022- No [id number] 200mg Take 1 Meliza 200 MG oral 11-29 tablet Seybo ld Tablet 00:00: 00:00 (200 mg - 00 :00 total) by Externa mouth l daily Spironolact 2022-0 2022- No 50mg Take 1 Valdo sey one 50 MG 11-29 tablet (50 Sey bold oral Tablet 00:00: 00:00 mg total) - 00 :00 by mouth Externa daily l Doxepin HCl 2022- No [id number] 30{tbl} QD Take 30 Meliza 3 MG oral 11-29 tablets by Sey bold Tablet 00:00: 00:00 mouth - 00 :00 nightly as Externa needed l Modafinil 2022- No [id number] 200mg Take 1 Meliza 200 MG oral 11-29 tablet Seybo ld Tablet 00:00: 00:00 (200 mg - 00 :00 total) by Externa mouth l daily Spironolact 2022- No 50mg Take 1 Valdo daley one 50 MG 11-29 tablet (50 Sey bold oral Tablet 00:00: 00:00 mg total) - 00 :00 by mouth Externa daily l Trulicity 2022- No 1.5mg Inject 1.5 Meliza 1.5 11-29 mg into Seybold MG/0.5ML 00:00: 00:00 the skin - subcutaneou 00 :00 once a 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 s Solution week l Pen-injecto r Phenazopyri 2022- No Take by Aman anton dine HCl 11-01 07-06 mouth Seybold (AZO TABS 11:14: 00:00 - OR) 24 :00 Externa l diphenhydrA Yes Take by Valdo daley MINE-APAP, 06 mouth Seybold sleep, 11:14: - (TYLENOL PM 23 Externa EXTRA l STRENGTH OR) ASHWAGANDHA Yes Take by Valdo sey OR 7-06 mouth Seybold 11:14: - 23 Externa l Tirzepatide Yes [id number] 2.5mg Inject 0.5 Meliza (Mounjaro) 7-06 mL (2.5 mg Sey bold 2.5 00:00: total) - MG/0.5ML 00 into the Externa subcutaneou skin once l s Solution a week Pen-injecto r Fluoxetine Yes [id number] 10mg Take 1 K elsey HCl 7-06 capsule Seybold (PROzac) 10 00:00: (10 mg - MG oral 00 total) by Externa Capsule mouth l daily L-Methylfol Yes [id number] 1{tbl} Take 1 Meliza ate 7.5 MG 7-06 tablet by Seyb old oral Tablet 00:00: mouth - 00 daily Externa l Trazodone 0 Yes [id number] 50mg Take 1 Valdo sey HCl 50 MG 7-06 tablet (50 Seyb old oral Tablet 00:00: mg total) - 00 by mouth Externa nightly l Fluoxetine 0 2022- No [id number] 10mg Take 1 Meliza HCl 7-06 08-03 capsule Seybold (PROzac) 10 00:00: 00:00 (10 mg - MG oral 00 :00 total) by Externa Capsule mouth l daily L-Methylfol 0 202- No [id number] 1{tbl} Take 1 Meliza ate 7.5 MG 7-06 08-03 tablet by Sey bold oral Tablet 00:00: 00:00 mouth - 00 :00 daily Externa l Trazodone 2022-0 202- No [id number] 50mg Take 1 Ke lsey HCl 50 MG 7-06 08-03 tablet (50 Sey bold oral Tablet 00:00: 00:00 mg total) - 00 :00 by mouth Externa nightly l diphenhydrA Yes Take by Valdo daley MINE-APAP, 6-06 mouth Seybold sleep, 08:38: - (TYLENOL PM 51 Externa EXTRA l STRENGTH OR) [facility] Yes Take by Valdo sey OR 6-06 mouth Seybold 08:38: - 51 Externa l Phenazopyri Yes Take by Valdo daley dine HCl 6-06 mouth Seybold (AZO TABS 08:38: - OR) 51 Externa l Cetirizine 0 Yes 10mg Take 1 Kelse y (ZYRTEC) 10 6-06 tablet (10 Se ybold MG oral 00:00: mg total) - Tablet 00 by mouth Externa daily. l Cetirizine 0 Yes 10mg Take 1 Kelse y (ZYRTEC) 10 6-06 tablet (10 Se ybold MG oral 00:00: mg total) - Tablet 00 by mouth Externa daily. l Cetirizine 0 Yes 10mg Take 1 Kelse y (ZYRTEC) 10 6-06 tablet (10 Se ybold MG oral 00:00: mg total) - Tablet 00 by mouth Externa daily. l Trulicity 0 Yes [id number] .75mg Inject Meliza 0.75 - 0.75 mg Seybold MG/0.5ML 00:00: into the - subcutaneou 00 skin once Ext yoana s Solution a week l Pen-injecto r Cetirizine Yes [id number] 1{tbl} Take 1 Meliza HCl (ZyrTEC 6-06 tablet by Harjinder bold Allergy) 10 00:00: mouth - MG oral 00 daily Externa TABLET l DISPERSIBLE Escitalopra Yes [id number] 5mg Take 1 Meliza m Oxalate 6-06 tablet (5 Seybo ld (Lexapro) 5 00:00: mg total) - MG oral 00 by mouth Externa Tablet daily l Cetirizine 0 Yes 10mg Take 1 Kelse y (ZYRTEC) 10 6-06 tablet (10 Se ybold MG oral 00:00: mg total) - Tablet 00 by mouth Externa daily l Cetirizine 2022-0 Yes 10mg Take 1 Kelse y (ZYRTEC) 10 6-06 tablet (10 Se ybold MG oral 00:00: mg total) - Tablet 00 by mouth Externa daily l Trulicity 2022-0 2022- No [id number] .75mg Inject Meliza 0.75 10-02 0.75 mg Seybold MG/0.5ML 00:00: 00:00 into the - subcutaneou 00 :00 skin once Ext yoana s Solution a week l Pen-injecto r Cetirizine 2022- No [id number] 1{tbl} Take 1 Meliza HCl (ZyrTEC 10-02 tablet by Se ybold Allergy) 10 00:00: 00:00 mouth - MG oral 00 :00 daily Externa TABLET l DISPERSIBLE Escitalopra 2022- No [id number] 5mg Take 1 Meliza m Oxalate 10-02 tablet (5 Seyb old (Lexapro) 5 00:00: 00:00 mg total) - MG oral 00 :00 by mouth Externa Tablet daily l Albuterol Yes INHALE TWO Ke lsey HFA 108 (90 5-18 (2) Seybold Base) 00:00: PUFF(S) BY - MCG/ACT IN 00 MOUTH Externa AERS EVERY FOUR l HOURS NEEDED. Albuterol Yes INHALE TWO Ke lsey HFA 108 (90 5-18 (2) Seybold Base) 00:00: PUFF(S) BY - MCG/ACT IN 00 MOUTH Externa AERS EVERY FOUR l HOURS NEEDED. Albuterol Yes INHALE TWO Ke lsey HFA 108 (90 5-18 (2) Seybold Base) 00:00: PUFF(S) BY - MCG/ACT IN 00 MOUTH Externa AERS EVERY FOUR l HOURS NEEDED. Albuterol Yes INHALE TWO Ke lsey HFA 108 (90 5-18 (2) Seybold Base) 00:00: PUFF(S) BY - MCG/ACT IN 00 MOUTH Externa AERS EVERY FOUR l HOURS NEEDED. Albuterol Yes INHALE TWO Ke lsey HFA 108 (90 5-18 (2) Seybold Base) 00:00: PUFF(S) BY - MCG/ACT IN 00 MOUTH Externa AERS EVERY FOUR l HOURS NEEDED. Albuterol Yes INHALE TWO Ke lsey HFA 108 (90 5-18 (2) Seybold Base) 00:00: PUFF(S) BY - MCG/ACT IN 00 MOUTH Externa AERS EVERY FOUR l HOURS NEEDED. Budesonide, Yes USE 1 VIAL Meliza Inhalation, 4-26 VIA Seybold 0.5 MG/2ML 00:00: NEBULIZER - inhalation 00 1 TO 2 Externa Suspension TIMES l DAILY Budesonide, Yes USE 1 VIAL Meliza Inhalation, 4-26 VIA Seybold 0.5 MG/2ML 00:00: NEBULIZER - inhalation 00 1 TO 2 Externa Suspension TIMES l DAILY Budesonide, Yes USE 1 VIAL Meliza Inhalation, 4-26 VIA Seybold 0.5 MG/2ML 00:00: NEBULIZER - inhalation 00 1 TO 2 Externa Suspension TIMES l DAILY Budesonide, Yes USE 1 VIAL Meliza Inhalation, 4-26 VIA Seybold 0.5 MG/2ML 00:00: NEBULIZER - inhalation 00 1 TO 2 Externa Suspension TIMES l DAILY Budesonide, Yes USE 1 VIAL Meliza Inhalation, 4-26 VIA Seybold 0.5 MG/2ML 00:00: NEBULIZER - inhalation 00 1 TO 2 Externa Suspension TIMES l DAILY Budesonide, Yes USE 1 VIAL Meliza Inhalation, 4-26 VIA Seybold 0.5 MG/2ML 00:00: NEBULIZER - inhalation 00 1 TO 2 Externa Suspension TIMES l DAILY Dose 2021-04 No Unknown 2-13 00:00: 00 Dose 2021-04 No Unknown 2-13 00:00: 00 Dose 2021-04 No Unknown 2-13 00:00: 00 Dose 2021-04 No Unknown 2-13 00:00: 00 Dose 2021-04 No Unknown 2-13 00:00: 00 Dose 2021-04 No Unknown 2-13 00:00: 00 Dose 2021-04 No Unknown 2-13 00:00: 00 0.6 MG SC 2021-04 No QD X 1 WK, 2-13 THEN 1.2 MG 00:00: SC QD 00 INJECT 0.5 2021-04 No ML 2-13 SUBCUTANEOU 00:00: SLY WEEKLY. 00 TAKE 1 2021-04 No CAPSULE BY 2-13 MOUTH EVERY 00:00: 6 HOURS 00 TAKE 1 2021-1 No TABLET BY 2-13 MOUTH DAILY 00:00: IN THE MID 00 MORNING Dose 2021-1 No Unknown 2-13 00:00: 00 TAKE TWO 2021-1 No (2) 2-13 TABLET(S) 00:00: BY MOUTH 00 ONCE A DAY FOR 5 DAYS. TAKE ONE 2021-1 No (1) 2-13 TABLET(S) 00:00: BY MOUTH 00 DAILY. TAKE 2021-1 No ONE-HALF TO 2-13 ONE (1/2 TO 00:00: 1) 00 TABLET(S) BY MOUTH ONCE A DAY IN THE EVENING NEEDED. Dose 2021-1 No Unknown 2-13 00:00: 00 Dose 2021-1 No Unknown 2-13 00:00: 00 Dose 2021-1 No Unknown 2-13 00:00: 00 TAKE 1 2021-1 No TABLET BY 2-13 MOUTH EVERY 00:00: 4 TO 6 00 HOURS NEEDED FOR PAIN Dose 2021- No Unknown 2-13 00:00: 00 cyclobenzap 2021-04 Yes [id number] 10mg Take 1 Univers rine 10 mg 0-10 tablet by ity of tablet 00:00: mouth 3 [place] 00 (three) Medical times Branch daily as needed for Muscle Spasms. cyclobenzap 2021-04 Yes [id number] 10mg Take 1 Univers rine 10 mg 0-10 tablet by ity of tablet 00:00: mouth 3 [place] 00 (three) Medical times Branch daily as needed for Muscle Spasms. cyclobenzap 2021-04 Yes [id number] 10mg Take 1 Univers rine 10 mg 0-10 tablet by ity of tablet 00:00: mouth 3 [place] 00 (three) Medical times Branch daily as needed for Muscle Spasms. cyclobenzap 2021-04 Yes [id number] 10mg Take 1 Univers rine 10 mg 0-10 tablet by ity of tablet 00:00: mouth 3 [place] 00 (three) Medical times Branch daily as needed for Muscle Spasms. TAKE 1 2022-0 No 50 TABLET 8-29 DAILY. 00:00: 00 TAKE 1 2022-0 No TABLET 8-29 DAILY. 00:00: 00 TAKE 1 2022-0 No TABLET 8-29 DAILY. 00:00: 00 TAKE 1 2022-0 No TABLET 8-29 DAILY. 00:00: 00 TAKE 1 2-0 No 5 TABLET BY 8-19 MOUTH 2 00:00: HOURS PRIOR 00 TO SURGERY. TAKE 1 2-0 No 5 TABLET BY 8-19 MOUTH 2 00:00: HOURS PRIOR 00 TO SURGERY. Dose 2022-0 No Unknown 8 00:00: 00 TAKE 1 2022-0 No 5 TABLET BY 8-19 MOUTH 2 00:00: HOURS PRIOR 00 TO SURGERY. &lt 2022-0 No 250 8-04 00:00: 00 TAKE ONE 2-0 No 875 (1) 8-04 TABLET(S) 00:00: BY MOUTH 00 TWICE A DAY. Dose 2-0 No Unknown 8 00:00: 00 Dose 2022-0 No Unknown 8 00:00: 00 &lt 2022-0 No 250 8-04 00:00: 00 &lt 2022-0 No 250 8-04 00:00: 00 TAKE ONE 2-0 No 875 (1) 8-04 TABLET(S) 00:00: BY MOUTH 00 TWICE A DAY. TAKE ONE 2-0 No 875 (1) 8-04 TABLET(S) 00:00: BY MOUTH 00 TWICE A DAY. Dose 2022-0 No Unknown 5-31 00:00: 00 Dose 2022-0 No Unknown 5-31 00:00: 00 Dose 2022-0 No Unknown 5-31 00:00: 00 Dose 2022-0 No Unknown 5-31 00:00: 00 Dose 2022-0 No Unknown 5-31 00:00: 00 Dose 2022-0 No Unknown 5-31 00:00: 00 Dose 2022-0 No Unknown 5-31 00:00: 00 Dose 2022-0 No Unknown 5-31 00:00: 00 Dose 2022-0 No Unknown 5-31 00:00: 00 Dose 2022-0 No Unknown 5-31 00:00: 00 Dose 2022-0 No Unknown 5-31 00:00: 00 Dose 2022-0 No Unknown 5-31 00:00: 00 Dose 2022-0 No Unknown 5-31 00:00: 00 Dose 2022-0 No Unknown 5-31 00:00: 00 Dose 2022-0 No Unknown 5-31 00:00: 00 Dose 2022-0 No Unknown 5-31 00:00: 00 benzonatate 2019-04 Yes [id number] 100mg Take 1 Univers (TESSALON 0-15 capsule by ity of [place]) 100 00:00: mouth 3 [place] as mg capsule 00 (three) Medica l times Branch daily. benzonatate 2019-04 Yes [id number] 100mg Take 1 Univers (TESSALON 0-15 capsule by ity of [place]) 100 00:00: mouth 3 Naseem as mg capsule 00 (three) Medica l times Branch daily. benzonatate 2019-04 Yes [id number] 100mg Take 1 Univers (TESSALON 0-15 capsule by ity of [place]) 100 00:00: mouth 3 Naseem as mg capsule 00 (three) Medica l times Branch daily. benzonatate 2019-04 Yes [id number] 100mg Take 1 Univers (TESSALON 0-15 capsule by ity of [place]) 100 00:00: mouth 3 Naseem as mg capsule 00 (three) Medica l times Branch daily. benzonatate 2019-04 Yes [id number] 100mg Take 1 Univers (TESSALON 0-15 capsule by ity of [place]) 100 00:00: mouth 3 Naseem as mg capsule 00 (three) Medica l times Branch daily. Dose 0 No Unknown 4-11 00:00: 00 Dose 0 No Unknown 4-11 00:00: 00 ketoconazol 2017-0 No 1% e 2 % 4-11 topical 00:00: cream 00 Dose 0 No Unknown 4-11 00:00: 00 Vital Signs Vital Name Observation Time Observation Value Comments Source Systolic blood 2023-01-11 20:55:00 110 mm[Hg] Meliza Mueller - pressure External Diastolic blood 2023-01-11 20:55:00 72 mm[Hg] John Mueller - pressure External Heart rate 2023-01-11 20:55:00 84 /min Meliza delgado - External Body temperature 2023-01-11 20:55:00 36.61 Eleanor Deonna Mueller - External Respiratory rate 2023-01-11 20:55:00 14 /min Deonna Mueller - External Body height 2023-01-11 20:55:00 160 cm Meliza delgado - External Body weight 2023-01-11 20:55:00 129.729 kg Meliza Hill eybold - External BMI 2023-01-11 20:55:00 50.66 kg/m2 Meliza S eybold - External Systolic blood 2022 18:44:00 122 mm[Hg] Meliza Seybold - pressure External Diastolic blood 2022 18:44:00 79 mm[Hg] John y Seybold - pressure External Heart rate 2022 18:44:00 84 /min Meliza S eybold - External Body temperature 2022 18:44:00 37.06 Eleanor Deonna ey Seybold - External Respiratory rate 2022 18:44:00 18 /min Deonna ey Seybold - External Body height 2022 18:44:00 160 cm Meliza S eybold - External Body weight 2022 18:44:00 128.368 kg Meliza S eybold - External BMI 2022 18:44:00 50.13 kg/m2 Meliza S eybold - External Heart rate 2022-11-29 21:38:00 101 /min Meliza S eybold - External Body temperature 2022-11-29 21:38:00 36.11 Eleanor Deonna ey Seybold - External Respiratory rate 2022-11-29 21:38:00 16 /min Deonna ey Seybold - External Body height 2022-11-29 21:38:00 162.6 cm Meliza S eybold - External Body weight 2022-11-29 21:38:00 129.547 kg Meliza S eybold - External BMI 2022-11-29 21:38:00 49.02 kg/m2 Meliza S eybold - External Oxygen saturation in 2022-11-29 21:38:00 97 /min Meliza Alvaradoold - Arterial blood by External Pulse oximetry Systolic blood 2022-11-29 21:38:00 131 mm[Hg] Meliza Seybold - pressure External Diastolic blood 2022-11-29 21:38:00 82 mm[Hg] John y Seybold - pressure External Systolic blood 2022-11-01 16:10:00 104 mm[Hg] Meliza Seybold - pressure External Diastolic blood 2022-11-01 16:10:00 62 mm[Hg] John pickard Seybold - pressure External Heart rate 2022-11-01 16:10:00 85 /min Meliza Hill eybold - External Body temperature 2022-11-01 16:10:00 36.44 Eleanor Deonna falk Seybold - External Respiratory rate 2022-11-01 16:10:00 14 /min Deonna falk Seybold - External Body height 2022-11-01 16:10:00 160 cm Meliza Hill eybold - External Body weight 2022-11-01 16:10:00 131.09 kg Meliza Hill eybold - External BMI 2022-11-01 16:10:00 51.19 kg/m2 Meliza Hill eybold - External Systolic blood 2022-10-02 13:31:00 116 mm[Hg] Meliza Stewartybold - pressure External Diastolic blood 2022-10-02 13:31:00 78 mm[Hg] John pickard Seybold - pressure External Heart rate 2022-10-02 13:31:00 88 /min Meliza Hill eybold - External Body temperature 2022-10-02 13:31:00 36.17 Eleanor Deonna falk Seybold - External Respiratory rate 2022-10-02 13:31:00 14 /min Deonna falk Seybold - External Body height 2022-10-02 13:31:00 160 cm Meliza Hill eybold - External Body weight 2022-10-02 13:31:00 133.358 kg Meliza Hill eybold - External BMI 2022-10-02 13:31:00 52.08 kg/m2 Meliza Hill eybold - External Systolic blood 2022-02-06 01:16:00 120 mm[Hg] Univer sity of [facility] Branch Diastolic blood 2022-02-06 01:16:00 96 mm[Hg] Unive rsity of [facility] Heart rate 2022-02-06 01:16:00 96 /[facility] Body temperature 2022-02-06 01:16:00 36.89 Eleanor Univ ersity [facility] Respiratory rate 2022-02-06 01:16:00 20 /[facility] 2022-02-06 01:16:00 160 cm [facility] Body weight 2022-02-06 01:16:00 127.461 kg [facility] BMI 2022-02-06 01:16:00 49.78 kg/m2 [facility] Oxygen saturation in 2022-02-06 01:16:00 98 /min [facility] Arterial blood by [facility] Pulse oximetry Branch BP Systolic 2022-04-10 11:40:00 115 mm[Hg] BP Diastolic 2022-04-10 11:40:00 81 mm[Hg] Weight Measured 2022-04-10 11:40:00 274.80 pounds Height Measured 2022-04-10 11:40:00 63.50 inches Body Temperature 2022-04-10 11:40:00 98.10 degrees Heart Rate 2022-04-10 11:40:00 98.00 /min Respiratory Rate 2022-04-10 11:40:00 18.00 /min BP Systolic 2021-11-30 17:52:00 114 mm[Hg] BP [...] Procedure Date / Time Performed Performing Clinician [facility] e REFERRAL- 2022-09-24 05:01:00 Doctor Unassigned, No [facility] [place] REQUEST[facility]RESPONSE Name [facility] REFERRAL- 2022-04-10 06:01:00 Doctor Unassigned, No [facility] [place] REQUEST/RESPONSE Name [facility] NOTICE OF PRIVACY 2022-02-06 01:08:20 Doctor Unassigned, No [facility] [place] PRACTICES Name [facility] CONSENT/REFUSAL FOR 2022-02-06 01:08:02 Doctor Unassigned, No [facility] [place] DIAGNOSIS AND Name [facility] TREATMENT Plan of Care Planned Activity Planned Date Details Comments Source Goal Plan of Care Note [code = 02391-5] Goal Plan of Care Note [code = 39522-3] Goal Plan of Care Note [code = 49924-2] Goal Plan of Care Note [code = 02662-9] Goal Plan of Care Note [code = 22705-3] Goal Plan of Care Note [code = 43325-7] Goal Plan of Care Note [code = 75168-6] Goal Plan of Care Note [code = 00197-0] Goal Plan of Care Note [code = 87876-7] Goal Plan of Care Note [code = 42694-9] Goal Plan of Care Note [code = 97648-7] Goal Plan of Care Note [code = 00706-8] Goal Plan of Care Note [code = 71987-6] Goal Plan of Care Note [code = 58836-6] Goal Plan of Care Note [code = 82531-1] Goal Plan of Care Note [code = 60929-5] Goal Plan of Care Note [code = 48792-3] Goal Plan of Care Note [code = 16687-4] Goal Plan of Care Note [code = 09882-3] Goal Plan of Care Note [code = 14985-9] Goal Plan of Care Note [code = 09759-9] Goal Plan of Care Note [code = 92941-1] Goal Plan of Care Note [code = 31847-6] Goal Plan of Care Note [code = 42687-1] Goal Plan of Care Note [code = 16463-6] Goal Plan of Care Note [code = 60125-0] Goal Plan of Care Note [code = 56829-1] Goal Plan of Care Note [code = 43252-0] Goal Plan of Care Note [code = 56565-3] Goal Plan of Care Note [code = 09461-6] Goal Plan of Care Note [code = 56250-1] Goal Plan of Care Note [code = 30118-8] Goal Plan of Care Note [code = 38026-1] Goal Plan of Care Note [code = 28272-4] Goal Plan of Care Note [code = 60762-2] Goal Plan of Care Note [code = 41558-6] Goal Plan of Care Note [code = 90767-4] Goal Plan of Care Note [code = 03114-2] Goal Plan of Care Note [code = 27014-6] Goal Plan of Care Note [code = 11771-7] Goal Plan of Care Note [code = 96596-8] Goal Plan of Care Note [code = 52908-5] Goal Plan of Care Note [code = 43724-7] Goal Plan of Care Note [code = 62644-7] Goal Plan of Care Note [code = 85386-2] Goal Plan of Care Note [code = 83535-8] Goal Plan of Care Note [code = 26017-0] Goal Plan of Care Note [code = 93011-9] Goal Plan of Care Note [code = 46132-7] Goal Plan of Care Note [code = 34591-8] Goal Plan of Care Note [code = 08261-7] Goal Plan of Care Note [code = 02760-1] Goal Plan of Care Note [code = 01865-2] Goal Plan of Care Note [code = 49076-4] Goal Plan of Care Note [code = 24965-5] Encounters Start End Encounter Admission Attending Care Care Encounter Source Date/Time Date/Time Type Type Clinicians Facility Department ID 2023-03-04 2023-03-04 Outpatient MELIZA BARRON [id number] [place] 13:30:00 13:30:00 EMILIA Seybol d 2023-02-27 2023-02-27 Outpatient MELIZA LAGUNAS [id number] Meliza 15:45:00 15:45:00 AMIRHOSSEIN Se ybold 2023-02-19 2023-02-19 Outpatient MELIZA BARRON [id number] [place]iza 08:00:00 08:00:00 EMILIA Seybol d 2023-02-18 2023-02-18 Outpatient MELIZA LAGUNAS [id number] Meliza 00:00:00 00:00:00 AMIRHOSSEIN Se ybold 2023-02-14 2023-02-14 Outpatient MELIZA KIM [id number] [place]iza 00:00:00 00:00:00 RENAE Seybol d 2023-02-11 2023-02-11 Outpatient MELIZA KIM [id number] [place]iza 00:00:00 00:00:00 RENAE Seybol d 2023-02-08 2023-02-08 Outpatient MELIZA BARRON [id number] [place]iza 10:30:00 10:30:00 EMILIA Seybol d 2023-02-07 2023-02-07 Outpatient MELIZA KIM [id number] [place]iza 00:00:00 00:00:00 RENAE Seybol d 2023-01-24 2023-01-24 Outpatient MELIZA RODRIGUEZ [id number] Meliza 11:00:00 11:00:00 CAMILLA Seybol d 2023-01-17 2023-01-17 Outpatient HECTOR SANTANA [id number] Meliza 00:00:00 00:00:00 MD BRIDGETTE Seybol d 2023-01-11 2023-01-11 Outpatient MELIZA BARRON [id number] [place] 16:00:00 16:00:00 EMILIA Seybol d 2023-01-04 2023-01-04 Outpatient MICAH WONG [id number] [place] 11:30:00 11:30:00 Seybol d 2023-01-04 2023-01-04 Outpatient MELIZA ANDREW [id number] [place] 11:00:00 11:00:00 BASHAR Seybol d 2023-01-02 2023-01-02 Outpatient MELIZA QUINONES [id number] [place] 12:45:00 12:45:00 AWA Seybol d 2022 2022 Outpatient MELIZA LAGUNAS [id number] [place] 13:30:00 13:30:00 AMIRHOSSEIN Se ybold 2022 2022 Outpatient MELIZA BARRON [id number] Meliza 00:00:00 00:00:00 EMILIA Seybol d 2022-11-30 2022-11-30 Outpatient MELIZA KIM [id number] [place]iza 00:00:00 00:00:00 RENAE Seybol d 2022-11-29 2022-11-29 Outpatient MELIZA BARRON [id number] [place] 16:30:00 16:30:00 EMILIA Seybol d 2022-11-14 2022-11-14 Outpatient MELIZA BARRON [id number] [place]iza 00:00:00 00:00:00 EMILIA Seybol d 2022-11-08 2022-11-08 Outpatient MICAH WONG [id number] Meliza 08:00:00 08:00:00 Seybol d 2022-11-02 2022-11-02 Outpatient MELIZA BARRON [id number] [place] 00:00:00 00:00:00 EMILIA Seybol d 2022-11-01 2022-11-01 Outpatient VALDO BARRONHARJINDER SANTANA [id number] [place] 11:00:00 11:00:00 EMILIA Alvaradool edward 2022-10-10 2022-10-10 Outpatient Ce ELLER [facility] [id number] Univers 15:15:00 15:15:00 CAYETANO buck [facility] 2022-10-08 2022-10-08 Outpatient LEONARDOGama MELIZA SANTANA [id number] [place]iza 00:00:00 00:00:00 EMILIA Stewartybol edward 2022-10-02 2022-10-02 Outpatient LAB90 MELIZA MELIZA [id number] [place]iza 09:15:00 09:15:00 Seybol edward 2022-10-02 2022-10-02 Outpatient BEATRICE MELIZA SANTANA [id number] [place] 08:30:00 08:30:00 EMILIA Alvaradool edward 2022-09-24 2022-09-24 Orders Doctor JOSE R 1.2.840.114 [id number] Univers 00:00:00 00:00:00 Only Unassigned, JAZMIN 350.1.13.10 [facility] [facility] 4.2.7.2.686 Naseem as [phone] [place] [address] Branch 2022-07-05 2022-07-05 Outpatient Ce RAM [facility] [id number] Univers 14:00:00 14:00:00 WILY buck of [facility] 2022-05-25 2022-05-25 Telephone Pcp, [facility] [id number] Univers 00:00:00 00:00:00 Patient HEALTH 350.1.13.10 it y of Does Not CLEAR 4.2.7.2.686 Naseem as Have A DOVE [id number] [place] [id number] Branch OFFICE BUILDING 2022-05-02 2022-05-02 Outpatient SFA SFA [id number] Goldy 14:26:40 14:26:40 0104 F Alber 2022-05-01 2022-05-01 Outpatient SFA SFA [id number] Goldy 14:48:15 14:48:15 0103 F Alber 2022-04-10 2022-04-10 Outpatient SFA SFA [id number] Goldy 17:33:51 17:33:51 1213 F Alber 2022-04-10 2022-04-10 Outpatient [id number] 00:00:00 00:00:00 Visit p913-8v5t 177-4d1f-a -ji2n-707 v3h-827xck bnzm554s7 c854b8 2022-04-10 2022-04-10 Orders Doctor JOSE R 1.2.840.114 [id number] Univers 00:00:00 00:00:00 Only Unassigned, JAZMIN 350.1.13.10 [place] [facility] 4.2.7.2.686 Naseem as [phone] [address] 2022-02-05 2022-02-05 Emergency X [facility] ERT [id number] Univers 20:21:00 20:45:00 LONI ity [facility] 2022-02-05 2022-02-05 [facility] 1.2.840.114 [id number] Univers 20:21:00 20:45:00 Loni HUDSON 350.1.13.10 ity [facility] 4.2.7.2.686 [id number] [address] 2022-02-05 2022-02-05 Orders Doctor JOSE R 1.2.840.114 [id number] Univers 00:00:00 00:00:00 Only Unassigned, JAZMIN 350.1.13.10 [place] [facility] 4.2.7.2.686 Naseem as [id number] [address] 2022-01-29 2022-01-29 Outpatient [facility] [id number] Goldy 13:58:34 13:58:34 1003 F Alber 2022-01-29 2022-01-29 Outpatient [id number] 00:00:00 00:00:00 Visit 6u44-8381 j03-4818-9 -47e3-054 2b0-500bsv pfh1825k1 7571f0 2021-12-15 2021-12-15 Outpatient [id number] [id number]-[id number] 00:00:00 00:00:00 Visit v518-509k 339-448b-a -i293-2ci 235-1eb9d3 [id number] 7y5094 2021-11-30 2021-11-30 Outpatient [id number] 8jfo73-3 00:00:00 00:00:00 Visit 8efe-476f robb-476f-9 -5t5v-c5a b5d-h2e90z 52of2h424 k3y507 2021-05-24 2021-05-24 Outpatient DESAI_RAKES [facility] [address] [place] 05:17:00 05:17:00 H 0126 da [facility] 2020-12-18 2020-12-18 Outpatient Ce PASCUAL [facility] 004 [id number] Univers 14:00:00 14:00:00 [facility] 2020-11-14 2020-11-14 Outpatient Ce RODRIGUES [facility] [id number] Univers 17:40:00 17:40:00 CODI [facility] 2020-02-11 2020-02-11 Outpatient Ce QUIROZ [facility] [id number] Univers 15:00:00 15:00:00 IVAN buck o f [facility] 2020-01-03 2020-01-03 Patient Doctor JOSE R 1.2.840.114 [id number] Univers 00:00:00 00:00:00 Secure Msg Unassigned, JAZMIN 350.1.13.10 [place] [facility] 4.2.7.2.686 Naseem as [id number] [address] 2020-01-01 2020-01-01 Outpatient Ce BERG [facility] [id number] Univers 15:00:00 15:00:00 RANULFO [facility] 2020-01-01 2020-01-01 [facility] [id number] Univers 08:00:00 08:00:00 JULIUS [facility] Results Test Description Test Time Test Comments Results Result Comments Source HPV HIGH RISK WITH GENOTYPE, TP 2017-08-09 00:00:00 Test Item Value Reference Range Interpretation Comme nts HPV HIGH RISK INTERP (test code = 77691) NEGATIVE HPV 16 (test code = 05280) NEGATIVE HPV 18 (test code = 89651) NEGATIVE HPV, HR, OTHER GENOTYPES (test code = 38592) NEGATIVE [id number] 00:00:00 Test Item Value Reference Range Interpretation Comments TSH (test code = 2821) 2.590 UIU/ML [id number] 00:00:00 Test Item Value Reference Range Interpretation Comments TSH (test code = 2821) 2.590 UIU/ML [id number] 00:00:00 Test Item Value Reference Range Interpretation Comments TSH (test code = 2821) 2.590 UIU/ML FSH + LH [id number] 00:00:00 Test Item Value Reference Range Interpretation Comments FOLLICLE STIM HORMONE (test code = 7.5 IU/L 2700) LUTEINIZING HORMONE (test code = 8.3 IU/L 2776) FSH + LH [id number] 00:00:00 Test Item Value Reference Range Interpretation [...] eGFR AMER. (test code 146 ML/MIN/1.73 = 03969) eGFR NON- AMER. (test 126 ML/MIN/1.73 code = 26828) CALC BUN/CREAT (test code = 19 RATIO [...] eGFR AMER. (test code 146 ML/MIN/1.73 = 58550) eGFR NON- AMER. (test 126 ML/MIN/1.73 code = 08929) CALC BUN/CREAT (test code = 19 RATIO 2235) SODIUM (test code = 2231) 139 MEQ/L POTASSIUM (test code = 2228) 3.9 MEQ/L CHLORIDE (test code = 2215) 99 MEQ/L CARBON DIOXIDE (test code = 25 MEQ/L 2206) CALCIUM (test code = 2209) 8.7 MG/DL PROTEIN, TOTAL (test code = 7.6 G/DL 2229) ALBUMIN (test code = 2201) 4.3 G/DL [...] Interpretation Comments HEMOGLOBIN A1c (test code = 61559) 5.3 % HEMOGLOBIN A1c [ADDED]2017-08-09 00:00:00 Test Item Value Reference Range Interpretation Comments HEMOGLOBIN A1c (test code = 90235) 5.3 % HEMOGLOBIN A1c [ADDED]2017-08-09 00:00:00 Test Item Value Reference Range Interpretation Comments HEMOGLOBIN A1c (test code = 18855) 5.3 % DHEA [id number] 00:00:00 Test Item Value Reference Range Interpretation Comments DHEA SULFATE (test code = 4225) 158 UG/DL GC AND CHLAMYDIA AMPLIFIED, [id number] 00:00:00 Test Item Value Reference Range Interpretation Comments GONORRHEA, TMA (test code = 56999) NEGATIVE CHLAMYDIA, TMA (test code = 00509) NEGATIVE DHEA [id number] 00:00:00 Test Item Value Reference Range Interpretation Comments DHEA SULFATE (test code = 4225) 158 UG/DL GC AND CHLAMYDIA AMPLIFIED, [id number] 00:00:00 Test Item Value Reference Range Interpretation Comments GONORRHEA, TMA (test code = 29153) NEGATIVE CHLAMYDIA, TMA (test code = 73561) NEGATIVE DHEA [id number] 00:00:00 Test Item Value Reference Range Interpretation Comments DHEA SULFATE (test code = 4225) 158 UG/DL DHEA [id number] 00:00:00 Test Item Value Reference Range Interpretation Comments DHEA SULFATE (test code = 4225) 158 UG/DL GC AND CHLAMYDIA AMPLIFIED, [id number] 00:00:00 Test Item Value Reference Range Interpretation Comments GONORRHEA, TMA (test code = 00622) NEGATIVE CHLAMYDIA, TMA (test code = 87160) NEGATIVE PAP TEST, THINPREP, [id number] 00:00:00 Test Item Value Reference Range Interpretation Comments SOURCE: (test code = Cervical/Endocervical 8001) SLIDES: (test code = 1 8011) LMP: (test code = 08/01/2017 8021) SPECIMEN ADEQUACY: (NOTE) (test code = 63786) INTERPRETATION: (test NO EPITHELIAL code = 56632) ABNORMALITY SEE BELOW PIPE COVERER HELPER: Theresa (test code = 8101) WilderCT(ASCP)IAC LOCATION: (test code (NOTE) = 15984) CPT: (test code = (NOTE) 8140) [id number] 00:00:00 Test Item Value Reference Range Interpretation Comments TESTOSTERONE (test code = 2830) 30 NG/DL PAP TEST, THINPREP, [id number] 00:00:00 Test Item Value Reference Range Interpretation Comments SOURCE: (test code = Cervical/Endocervical 8001) SLIDES: (test code = 1 8011) LMP: (test code = 08/01/2017 8021) SPECIMEN ADEQUACY: (NOTE) (test code = 95397) INTERPRETATION: (test NO EPITHELIAL code = 65418) ABNORMALITY SEE BELOW PIPE COVERER HELPER: Theresa (test code = 8101) MASON Hdz(ASCP)IAC LOCATION: (test code (NOTE) = 73027) CPT: (test code = (NOTE) 8140) [id number] 00:00:00 Test Item Value Reference Range Interpretation Comments TESTOSTERONE (test code = 2830) 30 NG/DL [id number] 00:00:00 Test Item Value Reference Range Interpretation Comments PROLACTIN (test code = 2800) 9.0 NG/ML HPV HIGH RISK WITH GENOTYPE, [id number] 00:00:00 Test Item Value Reference Range Interpretation Comments HPV HIGH RISK INTERP (test code = NEGATIVE 14613) HPV 16 (test code = 66721) NEGATIVE HPV 18 (test code = 44260) NEGATIVE HPV, HR, OTHER GENOTYPES (test code NEGATIVE = 15886) [id number] 00:00:00 Test Item Value Reference Range Interpretation Comments PROLACTIN (test code = 2800) 9.0 NG/ML HPV HIGH RISK WITH GENOTYPE, [id number] 00:00:00 Test Item Value Reference Range Interpretation Comments HPV HIGH RISK INTERP (test code = NEGATIVE 74646) HPV 16 (test code = 10337) NEGATIVE HPV 18 (test code = 79055) NEGATIVE HPV, HR, OTHER GENOTYPES (test code NEGATIVE = 06515) [id number] 00:00:00 Test Item Value Reference Range Interpretation Comments TSH (test code = 2821) 2.590 UIU/ML GC AND CHLAMYDIA AMPLIFIED, [id number] 00:00:00 Test Item Value Reference Range Interpretation Comments GONORRHEA, TMA (test code = 85536) NEGATIVE CHLAMYDIA, TMA (test code = 24393) NEGATIVE [id number] 00:00:00 Test Item Value Reference Range Interpretation Comments TSH (test code = 2821) 2.590 UIU/ML [id number] 00:00:00 Test Item Value Reference Range Interpretation Comments TSH (test code = 2821) 2.590 UIU/ML FSH + LH [id number] 00:00:00 Test Item Value Reference Range Interpretation Comments FOLLICLE STIM HORMONE (test code = 7.5 IU/L 2700) LUTEINIZING HORMONE (test code = 8.3 IU/L 2776) FSH + LH [id number] 00:00:00 Test Item Value Reference Range Interpretation [...] eGFR AMER. (test code 146 ML/MIN/1.73 = 02940) eGFR NON- AMER. (test 126 ML/MIN/1.73 code = 34867) CALC BUN/CREAT (test code = 19 RATIO [...] eGFR AMER. (test code 146 ML/MIN/1.73 = 99587) eGFR NON- AMER. (test 126 ML/MIN/1.73 code = 17018) CALC BUN/CREAT (test code = 19 RATIO [...] Interpretation Comments HEMOGLOBIN A1c (test code = 27593) 5.3 % HEMOGLOBIN A1c [ADDED]2017-08-09 00:00:00 Test Item Value Reference Range Interpretation Comments HEMOGLOBIN A1c (test code = 98857) 5.3 % PAP TEST, THINPREP, [id number] 00:00:00 Test Item Value Reference Range Interpretation Comments SOURCE: (test code = Cervical/Endocervical 8001) SLIDES: (test code = 1 8011) LMP: (test code = 08/01/2017 8021) SPECIMEN ADEQUACY: (NOTE) (test code = 90076) INTERPRETATION: (test NO EPITHELIAL code = 40159) ABNORMALITY SEE BELOW PIPE COVERER HELPER: Theresa (test code = 8101) MASON Hdz(ASCP)IAC LOCATION: (test code (NOTE) = 53362) CPT: (test code = (NOTE) 8140) HEMOGLOBIN A1c [ADDED]2017-08-09 00:00:00 Test Item Value Reference Range Interpretation Comments HEMOGLOBIN A1c (test code = 84047) 5.3 % [id number] 00:00:00 Test Item Value Reference Range Interpretation Comments TESTOSTERONE (test code = 2830) 30 NG/DL PAP TEST, THINPREP, [id number] 00:00:00 Test Item Value Reference Range Interpretation Comments SOURCE: (test code = Cervical/Endocervical 8001) SLIDES: (test code = 1 8011) LMP: (test code = 08/01/2017 8021) SPECIMEN ADEQUACY: (NOTE) (test code = 93592) INTERPRETATION: (test NO EPITHELIAL code = 03834) ABNORMALITY SEE BELOW PIPE COVERER HELPER: Theresa (test code = 8101) MASON Hdz(ASCP)IAC LOCATION: (test code (NOTE) = 97681) CPT: (test code = (NOTE) 8140) [id number] 00:00:00 Test Item Value Reference Range Interpretation Comments TESTOSTERONE (test code = 2830) 30 NG/DL [id number] 00:00:00 Test Item Value Reference Range Interpretation Comments PROLACTIN (test code = 2800) 9.0 NG/ML GC AND CHLAMYDIA AMPLIFIED, [id number] 00:00:00 Test Item Value Reference Range Interpretation Comments GONORRHEA, TMA (test code = 09762) NEGATIVE CHLAMYDIA, TMA (test code = 47671) NEGATIVE DHEA [id number] 00:00:00 Test Item Value Reference Range Interpretation Comments DHEA SULFATE (test code = 4225) 158 UG/DL GC AND CHLAMYDIA AMPLIFIED, [id number] 00:00:00 Test Item Value Reference Range Interpretation Comments GONORRHEA, TMA (test code = 69755) NEGATIVE CHLAMYDIA, TMA (test code = 48306) NEGATIVE DHEA [id number] 00:00:00 Test Item Value Reference Range Interpretation Comments DHEA SULFATE (test code = 4225) 158 UG/DL [id number] 00:00:00 Test Item Value Reference Range Interpretation Comments TESTOSTERONE (test code = 2830) 30 NG/DL HPV HIGH RISK WITH GENOTYPE, [id number] 00:00:00 Test Item Value Reference Range Interpretation Comments HPV HIGH RISK INTERP (test code = NEGATIVE 71370) HPV 16 (test code = 43841) NEGATIVE HPV 18 (test code = 75529) NEGATIVE HPV, HR, OTHER GENOTYPES (test code NEGATIVE = 42145) PAP TEST, THINPREP, [id number] 00:00:00 Test Item Value Reference Range Interpretation Comments SOURCE: (test code = Cervical/Endocervical 8001) SLIDES: (test code = 1 8011) LMP: (test code = 08/01/2017 8021) SPECIMEN ADEQUACY: (NOTE) (test code = 12712) INTERPRETATION: (test NO EPITHELIAL code = 35996) ABNORMALITY SEE BELOW PIPE COVERER HELPER: Theresa (test code = 8101) MASON Hdz(ASCP)IAC LOCATION: (test code (NOTE) = 67868) CPT: (test code = (NOTE) 8140) [id number] 00:00:00 Test Item Value Reference Range Interpretation Comments TESTOSTERONE (test code = 2830) 30 NG/DL PAP TEST, THINPREP, [id number] 00:00:00 Test Item Value Reference Range Interpretation Comments SOURCE: (test code = Cervical/Endocervical 8001) SLIDES: (test code = 1 8011) LMP: (test code = 08/01/2017 8021) SPECIMEN ADEQUACY: (NOTE) (test code = 48101) INTERPRETATION: (test NO EPITHELIAL code = 31377) ABNORMALITY SEE BELOW PIPE COVERER HELPER: Theresa (test code = 8101) MASON Hdz(ASCP)IAC LOCATION: (test code (NOTE) = 10346) CPT: (test code = (NOTE) 8140) [id number] 00:00:00 Test Item Value Reference Range Interpretation Comments PROLACTIN (test code = 2800) 9.0 NG/ML HPV HIGH RISK WITH GENOTYPE, [id number] 00:00:00 Test Item Value Reference Range Interpretation Comments HPV HIGH RISK INTERP (test code = NEGATIVE 23777) HPV 16 (test code = 28827) NEGATIVE HPV 18 (test code = 76509) NEGATIVE HPV, HR, OTHER GENOTYPES (test code NEGATIVE = 20867) [id number] 00:00:00 Test Item Value Reference Range Interpretation Comments PROLACTIN (test code = 2800) 9.0 NG/ML HPV HIGH RISK WITH GENOTYPE, [id number] 00:00:00 Test Item Value Reference Range Interpretation Comments HPV HIGH RISK INTERP (test code = NEGATIVE 97262) HPV 16 (test code = 87650) NEGATIVE HPV 18 (test code = 14657) NEGATIVE HPV, HR, OTHER GENOTYPES (test code NEGATIVE = 65495) [id number] 00:00:00 Test Item Value Reference Range Interpretation Comments TSH (test code = 2821) 2.590 UIU/ML [id number] 00:00:00 Test Item Value Reference Range Interpretation Comments TSH (test code = 2821) 2.590 UIU/ML [id number] 00:00:00 Test Item Value Reference Range Interpretation Comments TSH (test code = 2821) 2.590 UIU/ML [id number] 00:00:00 Test Item Value Reference Range Interpretation Comments PROLACTIN (test code = 2800) 9.0 NG/ML FSH + LH [id number] 00:00:00 Test Item Value Reference Range Interpretation Comments FOLLICLE STIM HORMONE (test code = 7.5 IU/L 2700) LUTEINIZING HORMONE (test code = 8.3 IU/L 2776) FSH + LH [id number] 00:00:00 Test Item Value Reference Range Interpretation [...] eGFR AMER. (test code 146 ML/MIN/1.73 = 54180) eGFR NON- AMER. (test 126 ML/MIN/1.73 code = 65039) CALC BUN/CREAT (test code = 19 RATIO [...] eGFR AMER. (test code 146 ML/MIN/1.73 = 70072) eGFR NON- AMER. (test 126 ML/MIN/1.73 code = 08850) CALC BUN/CREAT (test code = 19 RATIO [...] Interpretation Comments HEMOGLOBIN A1c (test code = 39567) 5.3 % HEMOGLOBIN A1c [ADDED]2017-08-09 00:00:00 Test Item Value Reference Range Interpretation Comments HEMOGLOBIN A1c (test code = 08353) 5.3 % HEMOGLOBIN A1c [ADDED]2017-08-09 00:00:00 Test Item Value Reference Range Interpretation Comments HEMOGLOBIN A1c (test code = 67359) 5.3 % HPV HIGH RISK WITH GENOTYPE, [id number] 00:00:00 Test Item Value Reference Range Interpretation Comments HPV HIGH RISK INTERP (test code = NEGATIVE 12343) HPV 16 (test code = 35817) NEGATIVE HPV 18 (test code = 35444) NEGATIVE HPV, HR, OTHER GENOTYPES (test code NEGATIVE = 34487) [id number] 00:00:00 Test Item Value Reference Range Interpretation Comments TSH (test code = 2821) 2.590 UIU/ML [id number] 00:00:00 Test Item Value Reference Range Interpretation Comments TSH (test code = 2821) 2.590 UIU/ML [id number] 00:00:00 Test Item Value Reference Range Interpretation Comments TSH (test code = 2821) 2.590 UIU/ML FSH + LH [id number] 00:00:00 Test Item Value Reference Range Interpretation Comments FOLLICLE STIM HORMONE (test code = 7.5 IU/L 2700) LUTEINIZING HORMONE (test code = 8.3 IU/L 2776) FSH + LH [id number] 00:00:00 Test Item Value Reference Range Interpretation [...] eGFR AMER. (test code 146 ML/MIN/1.73 = 69158) eGFR NON- AMER. (test 126 ML/MIN/1.73 code = 18026) CALC BUN/CREAT (test code = 19 RATIO [...] eGFR AMER. (test code 146 ML/MIN/1.73 = 16635) eGFR NON- AMER. (test 126 ML/MIN/1.73 code = 26535) CALC BUN/CREAT (test code = 19 RATIO [...] Interpretation Comments HEMOGLOBIN A1c (test code = 90159) 5.3 % HEMOGLOBIN A1c [ADDED]2017-08-09 00:00:00 Test Item Value Reference Range Interpretation Comments HEMOGLOBIN A1c (test code = 02924) 5.3 % HEMOGLOBIN A1c [ADDED]2017-08-09 00:00:00 Test Item Value Reference Range Interpretation Comments HEMOGLOBIN A1c (test code = 91238) 5.3 % GC AND CHLAMYDIA AMPLIFIED, [id number] 00:00:00 Test Item Value Reference Range Interpretation Comments GONORRHEA, TMA (test code = 88703) NEGATIVE CHLAMYDIA, TMA (test code = 54096) NEGATIVE DHEA [id number] 00:00:00 Test Item Value Reference Range Interpretation Comments DHEA SULFATE (test code = 4225) 158 UG/DL GC AND CHLAMYDIA AMPLIFIED, [id number] 00:00:00 Test Item Value Reference Range Interpretation Comments GONORRHEA, TMA (test code = 57236) NEGATIVE CHLAMYDIA, TMA (test code = 55824) NEGATIVE DHEA [id number] 00:00:00 Test Item Value Reference Range Interpretation Comments DHEA SULFATE (test code = 4225) 158 UG/DL [id number] 00:00:00 Test Item Value Reference Range Interpretation Comments TESTOSTERONE (test code = 2830) 30 NG/DL PAP TEST, THINPREP, [id number] 00:00:00 Test Item Value Reference Range Interpretation Comments SOURCE: (test code = Cervical/Endocervical 8001) SLIDES: (test code = 1 8011) LMP: (test code = 08/01/2017 8021) SPECIMEN ADEQUACY: (NOTE) (test code = 75792) INTERPRETATION: (test NO EPITHELIAL code = 67607) ABNORMALITY SEE BELOW PIPE COVERER HELPER: Theresa (test code = 8101) MASON Hdz(ASCP)IAC LOCATION: (test code (NOTE) = 33367) CPT: (test code = (NOTE) 8140) [id number] 00:00:00 Test Item Value Reference Range Interpretation Comments TESTOSTERONE (test code = 2830) 30 NG/DL PAP TEST, THINPREP, [id number] 00:00:00 Test Item Value Reference Range Interpretation Comments SOURCE: (test code = Cervical/Endocervical 8001) SLIDES: (test code = 1 8011) LMP: (test code = 08/01/2017 8021) SPECIMEN ADEQUACY: (NOTE) (test code = 43888) INTERPRETATION: (test NO EPITHELIAL code = 21564) ABNORMALITY SEE BELOW PIPE COVERER HELPER: Theresa (test code = 8101) MASON Hdz(ASCP)IAC LOCATION: (test code (NOTE) = 94177) CPT: (test code = (NOTE) 8140) [id number] 00:00:00 Test Item Value Reference Range Interpretation Comments PROLACTIN (test code = 2800) 9.0 NG/ML HPV HIGH RISK WITH GENOTYPE, [id number] 00:00:00 Test Item Value Reference Range Interpretation Comments HPV HIGH RISK INTERP (test code = NEGATIVE 66856) HPV 16 (test code = 72426) NEGATIVE HPV 18 (test code = 77124) NEGATIVE HPV, HR, OTHER GENOTYPES (test code NEGATIVE = 43045) [id number] 00:00:00 Test Item Value Reference Range Interpretation Comments PROLACTIN (test code = 2800) 9.0 NG/ML
[2023-02-20] MEDS ORDERED: NA CHLORIDE 0.9% 1,000 ML ONE (15:36)
--- NOTE | 2023-02-20 16:19 | RAD REPORT ---
EXAM DESCRIPTION: US - Pelvis Complete - 02/20/2023 4:12 pm CLINICAL HISTORY: Vaginal bleeding;Abd pain Pelvic pain. COMPARISON: No comparisons FINDINGS: Examination was very limited by body habitus. Patient also refused transvaginal imaging. Grossly unremarkable uterus measuring 10 x 5 cm noted. No pelvic ascites. No adnexal lesions. Further detailed assessment not possible.
[2023-02-20 16:29] LABS: Absolute Lymphocytes (CBC) 1.5 K/uL (0.7-4.9); Hematocrit 36.9 % (36.0-45.0); Lymphocytes % 17.3 % (15.3-44.8); MCV 77.9 fL (80-100); MPV 9.6 fL (7.6-11.3); Platelets 264 thou/uL (152-406); RBC Red Blood Cell Count 4.73 M/uL (3.86-4.86)
[2023-02-20 16:40] LABS: Potassium 3.5 mEq/L (3.5-5.1)
[2023-02-20 17:08] LABS: Specific Gravity 1.023 (1.005-1.030); Urine Bacteria None Seen /HPF (<20); Urine Bilirubin NEGATIVE (Negative); Urine Blood 3+ (OVER) (Negative); Urine Clarity Extremely Turbid (Clear); Urine Color Light-Orange (Yellow); Urine Glucose NEGATIVE (Negative); Urine Protein 1+ (Negative); Urine RBC >50 /HPF (None Seen); Urine Urobilinogen Normal (Normal)
[2023-02-20 17:11] LABS: Specific Gravity 1.023 (1.005-1.030)
--- NOTE | 2023-02-20 17:25 | EDPHYS ---
Physician Documentation [facility] Name: Lynda Dia Age: 32 yrs Sex: Female : 1990 Arrival Date: 02/20/2023 Time: 14:41 Bed 18 Private MD: ED Physician Jaxon Santiago HPI: 02/20 14:51 This 32 yrs old Female presents to ER via Ambulatory with complaints of jh7 Dizziness. 14:51 32-year-old female reports dizziness/lightheadedness and fatigue since she has been on jh7 a new control that she started last month. History of anemia and PCOS. Reports lower abdominal cramping and heavy vaginal bleeding for the past 2 weeks.. 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 - Social history:: Smoking status: unknown. ROS: 14:51 Constitutional: Negative for fever, chills, and weight loss, Neck: Negative for injury, jh7 pain, and swelling, Cardiovascular: Negative for chest pain, palpitations, and edema, Respiratory: Negative for shortness of breath, cough, wheezing, and pleuritic chest pain, 14:51 Back: Negative for injury and pain, MS/Extremity: Negative for injury and deformity, Skin: Negative for injury, rash, and discoloration, 14:51 Abdomen/GI: Positive for abdominal cramps, Negative for nausea, vomiting, and diarrhea, 14:51 : Positive for vaginal bleeding, Negative for urinary symptoms, 14:51 Neuro: Positive for dizziness, Negative for altered mental status, loss of consciousness, syncope, tingling, 14:51 All other systems are negative, Exam: 14:51 Constitutional: This is a well developed, well nourished patient who is awake, alert, jh7 and in no acute distress. Head/Face: Normocephalic, atraumatic. Cardiovascular: Regular rate and rhythm with a normal S1 and S2. No gallops, murmurs, or rubs. Normal PMI, no JVD. No pulse deficits. Respiratory: Lungs have equal breath sounds bilaterally, clear to auscultation and percussion. No rales, rhonchi or wheezes noted. No increased work of breathing, no retractions or nasal flaring. Abdomen/GI: Soft, non-tender, with normal bowel sounds. No distension or tympany. No guarding or rebound. No evidence of tenderness throughout. Back: No spinal tenderness. No costovertebral tenderness. Full range of motion. Skin: Warm, dry with normal turgor. Normal color with no rashes, no lesions, and no evidence of cellulitis. Neuro: Awake and alert, GCS 15, oriented to person, place, time, and situation. Motor strength 5/5 in all extremities. Sensory grossly intact. Normal gait. Vital Signs: 14:51 BP 115 / 83; Pulse 93; Resp 16; Temp 98.1(TE); Pulse Ox 99% on R/A; Weight 127.01 kg cm10 (R); Height 5 ft. 3 in. (R); Pain 0/10; 16:11 BP 112 / 71; Pulse 90; Resp 18; Pulse Ox 97% on R/A; mb9 17:14 BP 115 / 82; Pulse 92; Resp 17; Pulse Ox 98% on R/A; mb9 14:51 Body Mass Index 49.60 (127.01 kg, 160.02 cm) cm10 14:51 Pain Scale: Adult cm10 MDM: 14:47 Patient medically screened. [facility] 17:25 Differential diagnosis: , syncope, Vaginal bleeding. Data reviewed: vital [facility] signs, nurses notes, radiologic studies, ultrasound. I considered the following discharge prescriptions or medication management in the emergency department Medications were administered in the Emergency Department. See MAR. Counseling: I had a detailed discussion with the patient and/or guardian regarding the historical points, exam findings, and any diagnostic results supporting the discharge/admit diagnosis, the need for outpatient follow up, an OB/Gyne specialist, to return to the emergency department if symptoms worsen or persist or if there are any questions or concerns that arise at home. 02/20 14:58 Order name: Basic Metabolic Panel; Complete Time: 16:45 [facility] 02/20 14:58 Order name: CBC with Diff; Complete Time: 16:45 [facility] 02/20 14:58 Order name: Test, Urine; Complete Time: 17:21 [facility] 02/20 14:58 Order name: Urinalysis w/ reflexes; Complete Time: 17:21 7 02/20 14:58 Order name: Type And Screen; Complete Time: 17:21 7 02/20 16:14 Order name: Pelvis Complete; Complete Time: 16:22 EDMS 02/20 14:58 Order name: IV Saline Lock; Complete Time: 15:30 7 02/20 14:58 Order name: Labs collected and sent; Complete Time: 15:30 7 02/20 14:58 Order name: NPO; Complete Time: 15:02 [facility] Administered Medications: 16:01 Drug: NS 0.9% IV 1000 ml IV at 1 bolus Per protocol; 1000 mL bolus Route: IV; Rate: 1 mb9 bolus; Site: right antecubital; 17:48 Follow up: Response: No adverse reaction; IV Status: Completed infusion mb9 Disposition Summary: 02/20/23 17:24 Discharge Ordered Notes: Location: Home [facility] Problem: new [facility] Symptoms: have improved [facility] Condition: Stable [facility] Diagnosis - Dizziness and giddiness [facility] - Menorrhagia [facility] Followup: [facility] - With: Private Physician - When: 2 - 3 days - Reason: Recheck today's complaints Discharge Instructions: - Discharge Summary Sheet [facility] - Menorrhagia [facility] Forms: - Medication Reconciliation Form [facility] - Thank You Letter [facility] - Patient Portal Instructions [facility] - Leadership Thank You Letter [facility] Signatures: Dispatcher [employer] Lakshmi Mendoza, STOCK ANALYST STOCK ANALYST 7 Melania Guzman RN RN mb9 Fátima Smith RN RN cm10 Corrections: (The following items were deleted from the chart) 16:14 14:59 Transvaginal Study (Probe)+US.[email or web address].BRZ ordered. EDIL EDIL
--- NOTE | 2023-02-20 17:25 | ER ---
Nurse's Notes [facility] Name: Lynda Dia Age: 32 yrs Sex: Female : 1990 Arrival Date: 02/20/2023 Time: 14:41 Bed 18 Private MD: Diagnosis: Dizziness and giddiness;Menorrhagia Presentation: 02/20 14:51 Chief complaint: Patient states: was told to come to the ED by PCP due to feeling light cm10 headed. pt states that she recently started a new control and has been on her period for 2 weeks. Coronavirus screen: Vaccine status: Patient reports receiving the 2nd dose of the covid vaccine. Client denies travel out of the [place] in the last 14 days. Ebola Screen: Patient denies travel to an Ebola-affected area in the 21 days before illness onset. No symptoms or risks identified at this time. Initial Sepsis Screen: Does the patient meet any 2 criteria? No. Patient's initial sepsis screen is negative. Does the patient have a suspected source of infection? No. Patient's initial sepsis screen is negative. Risk Assessment: Do you want to hurt yourself or someone else? Patient reports no desire to harm self or others. Onset of symptoms was February 20, 2023. 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 - Social history:: Smoking status: unknown. Screenin:38 [facility] ED Fall Risk Assessment (Adult) History of falling in the last 3 months, mb9 including since admission No falls in past 3 months (0 pts) Confusion or Disorientation No (0 pts) Intoxicated or Sedated No (0 pts) Impaired Gait No (0 pts) Mobility Assist Device Used No (0 pt) Altered Elimination No (0 pt) Score/Fall Risk Level 0 - 2 = Low Risk Oriented to surroundings, Maintained a safe environment, Educated pt \T\ family on fall prevention, incl call for assistance when getting out of bed. Abuse screen: Denies threats or abuse. Nutritional screening: No deficits noted. Tuberculosis screening: No symptoms or risk factors identified. Assessment: 15:39 General: Appears in no apparent distress. Behavior is calm, cooperative. Pain: Denies mb9 pain. Neuro: Abbott Agitation-Sedation Scale (RASS): 0 - Alert and Calm Level of Consciousness is awake, alert, obeys commands, Oriented to person, place, time, situation, Appropriate for age Reports dizziness. Cardiovascular: Patient's skin is warm and dry. Respiratory: Airway is patent Respiratory effort is even, unlabored, Respiratory pattern is regular, symmetrical, Breath sounds are clear. GI: Abdomen is round non-distended, Bowel sounds present X 4 quads. Abd is soft and non tender X 4 quads. : Reports vaginal bleeding that is bright red, heavy flow. EENT: Throat is clear. Derm: Skin is pink, warm \T\ dry. Musculoskeletal: Range of motion: intact in all extremities. 16:39 Reassessment: No changes from previously documented assessment. Patient and/or family mb9 updated on plan of care and expected duration. Pain level reassessed. Patient is alert, oriented x 3, equal unlabored respirations, skin warm/dry/pink. 17:14 Reassessment: Patient and/or family updated on plan of care and expected duration. Pain mb9 level reassessed. Patient is alert, oriented x 3, equal unlabored respirations, skin warm/dry/pink. Patient states feeling better. Patient states symptoms have improved. Vital Signs: 14:51 BP 115 / 83; Pulse 93; Resp 16; Temp 98.1(TE); Pulse Ox 99% on R/A; Weight 127.01 kg cm10 (R); Height 5 ft. 3 in. (R); Pain 0/10; 16:11 BP 112 / 71; Pulse 90; Resp 18; Pulse Ox 97% on R/A; mb9 17:14 BP 115 / 82; Pulse 92; Resp 17; Pulse Ox 98% on R/A; mb9 14:51 Body Mass Index 49.60 (127.01 kg, 160.02 cm) cm10 14:51 Pain Scale: Adult cm10 ED Course: 14:47 Patient arrived in ED. ts1 14:47 [facility]sh[facility] Gutierrez [facility]NP [facility] 7 14:47 Jaxon Santiago MD is Attending Physician. jh7 14:53 Triage completed. cm10 14:54 Arm band placed on Patient placed in an exam room, on a stretcher. cm10 15:30 Basic Metabolic Panel Sent. bc6 15:30 CBC with Diff Sent. bc6 15:30 Inserted saline lock: 22 gauge in right antecubital area, using aseptic technique. bc6 Blood collected. 15:33 Melania Guzman, RN is Primary Nurse. mb9 15:38 Placed in gown. Bed in low position. Call light in reach. Side rails up X 1. Client mb9 placed on continuous cardiac and pulse oximetry monitoring. NIBP monitoring applied. branch sales and service representative on. 15:40 No provider procedures requiring assistance completed. mb9 16:14 Pelvis Complete In Process Unspecified. EDMS 17:49 IV discontinued, intact, bleeding controlled, No redness/swelling at site. Pressure mb9 dressing applied. Administered Medications: 16:01 Drug: NS 0.9% IV 1000 ml IV at 1 bolus Per protocol; 1000 mL bolus Route: IV; Rate: 1 mb9 bolus; Site: right antecubital; 17:48 Follow up: Response: No adverse reaction; IV Status: Completed infusion mb9 Medication: 17:49 VIS not applicable for this client. mb9 Outcome: 17:24 Discharge ordered by . 7 17:49 Discharged to home ambulatory, mb9 17:49 Condition: stable 17:49 Discharge instructions given to patient, Instructed on discharge instructions, follow up and referral plans. Demonstrated understanding of instructions, follow-up care, 17:49 Patient left the ED. mb9 Signatures: Dispatcher [employer] EDLakshmi Larson, FORM CARPENTER FORM CARPENTER 7 Melania Guzman, RN RN mb9 Floresita Mei bc6 Danna Medley PAS PAS ts1 Fátima Smith, RN RN cm10 Corrections: (The following items were deleted from the chart) 16:14 15:49 In radiology for Transvaginal Study (Probe)+US.[email or web address]. EDMS EDMS
[2023-02-21 16:02] VITALS: BP 115/82; TEMP 98.1; O2SAT 98
== END 2023-02-20 17:49 | disposition home or self-care (01) ==
LOC: ER 14:41
DX: N92.0 Excessive and frequent menstruation with regular cycle (principal)
CPT/HCPCS: 85025; 81001; 80048; 36415; 86900; 86850; 81025; 86901; 76856; J7030

== ENCOUNTER 2024-12-09 17:01 | Emergency (ER) | payer BC, OTHER ==
--- NOTE | 2024-12-09 18:34 | RAD REPORT ---
EXAM: Chest Pa And Lat (2 Views) HISTORY: 33 years Female DYSPNEA COMPARISON: 02/22/2022 FINDINGS: LUNGS/PLEURA: The lungs are clear. No pleural effusions or pneumothorax. No pulmonary edema. CARDIAC/MEDIASTINUM: The cardiac silhouette is within normal limits. UPPER ABDOMEN: No significant abnormality. BONES: No acute abnormality. LINES/TUBES/OTHER: N/A IMPRESSION: No evidence of acute cardiopulmonary disease.
[2024-12-09 18:44] LABS: Absolute Lymphocytes (CBC) 2.1 K/uL (0.7-4.9); Hematocrit 39.9 % (36.0-45.0); Hemoglobin 13.0 g/dL (12.0-15.0); MCH 23.5 pg (27.0-35.0); MCHC 32.5 g/dL (32.0-36.0); MCV 72.5 fL (80-100); MPV 8.6 fL (7.6-11.3); Nucleated RBC Absolute Count 0.0 (0-0); Nucleated Red Blood Cells % 0.0 % (0-0); RBC Red Blood Cell Count 5.51 M/uL (3.86-4.86); White Blood Count 11.80 thou/uL (4.3-10.9)
[2024-12-09 19:47] LABS: Anion Gap 6.7 mEq/L (5.0-15.0); BUN Blood Urea Nitrogen 9.0 mg/dL (7-18); Glucose Level 95.0 mg/dL (74-106); Potassium 3.7 mEq/L (3.5-5.1)
[2024-12-09] MEDS ORDERED: IPRATROPIUM BROM 0.5MG/2.5ML ONE (20:02)
[2024-12-09] MEDS ORDERED: ALBUTEROL 2.5 MG/3 ML NEB SOL ONE (20:02)
--- NOTE | 2024-12-09 20:06 | ER ---
Nurse's Notes [facility] Name: Lynda Dia Age: 33 yrs Sex: Female : 1990 Arrival Date: 12/09/2024 Time: 17:01 Bed 14 Private MD: Diagnosis: Acute bronchitis, unspecified Presentation: 12/09 17:37 Chief complaint: Patient states: WHEEZING, DIFFICULTY BREATHING, COUGHING AND THROAT dd2 FEELS SWOLLEN FOR A MONTH BUT HAS WORSENED THE PAST FEW DAYS. PT REPORTS HX OF ASTHMA AND LONG COVID. Coronavirus screen: At this time, the client does not indicate any symptoms associated with coronavirus-19. Ebola Screen: No symptoms or risks identified at this time. Initial Sepsis Screen: Does the patient meet any 2 criteria? No. Patient's initial sepsis screen is negative. Does the patient have a suspected source of infection? No. Patient's initial sepsis screen is negative. Risk Assessment: Do you want to hurt yourself or someone else? Patient reports no desire to harm self or others. Onset of symptoms is unknown. 17:37 Method Of Arrival: Ambulatory dd2 17:37 Acuity: TONJA 3 dd2 Triage Assessment: 17:40 General: Appears in no apparent distress. Behavior is calm, cooperative, appropriate dd2 for age. Pain: Denies pain. Respiratory: Reports shortness of breath at rest on exertion cough that is dry, persistent Onset: The symptoms/episode began/occurred at an unknown time. the patient has mild shortness of breath. 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 - Infectious Disease History:: Denies. - Social history:: Smoking status: Patient/guardian denies using tobacco, the patient reports quitting approximately 2 years ago. Screenin:20 [facility] ED Fall Risk Assessment (Adult) History of falling in the last 3 months, me1 including since admission No falls in past 3 months (0 pts) Confusion or Disorientation No (0 pts) Intoxicated or Sedated No (0 pts) Impaired Gait No (0 pts) Mobility Assist Device Used No (0 pt) Altered Elimination No (0 pt) Score/Fall Risk Level 0 - 2 = Low Risk Maintained a safe environment, Provided non-skid footwear, Hourly rounding (assess needs \T\ fall precautionary measures) done. Abuse screen: Denies threats or abuse. Nutritional screening: No deficits noted. Tuberculosis screening: No symptoms or risk factors identified. Assessment: 18:20 General: Appears in no apparent distress. obese, well groomed, well developed, Behavior me1 is calm, cooperative, appropriate for age, Reports WHEEZING, DIFFICULTY BREATHING, COUGHING AND THROAT FEELS SWOLLEN FOR A MONTH BUT HAS WORSENED THE PAST FEW DAYS. PT REPORTS HX OF ASTHMA AND LONG COVID. Pain: Denies pain. Neuro: Level of Consciousness is awake, alert, obeys commands, Oriented to person, place, time, situation, Appropriate for age. Cardiovascular: Patient's skin is warm and dry. Rhythm is regular. Respiratory: Reports shortness of breath cough that is pain with cough WHEEZING, DIFFICULTY BREATHING, COUGHING AND THROAT FEELS SWOLLEN FOR A MONTH BUT HAS WORSENED THE PAST FEW DAYS. PT REPORTS HX OF ASTHMA AND LONG COVID Airway is patent Respiratory effort is even, unlabored, Respiratory pattern is regular, symmetrical, Breath sounds are clear bilaterally. GI: No signs and/or symptoms were reported involving the gastrointestinal system. : No signs and/or symptoms were reported regarding the genitourinary system. EENT: Reports WHEEZING, DIFFICULTY BREATHING, COUGHING AND THROAT FEELS SWOLLEN FOR A MONTH BUT HAS WORSENED THE PAST FEW DAYS. PT REPORTS HX OF ASTHMA AND LONG COVID. Derm: Skin is intact, is healthy with good turgor, Skin is pink, warm \T\ dry. Musculoskeletal: No signs and/or symptoms reported regarding the musculoskeletal system. Circulation, motion, and sensation intact. Range of motion: intact in all extremities. Vital Signs: 17:37 BP 137 / 91; Pulse 100; Resp 18; Temp 98.2; Pulse Ox 100% on R/A; Weight 151.95 kg; dd2 Height 5 ft. 3 in. ; Pain 0/10; 18:00 BP 129 / 69; Pulse 94; Resp 19; Pulse Ox 95% ; me1 19:00 BP 125 / 83; Pulse 99; Resp 17; Pulse Ox 95% ; me1 20:00 BP 109 / 80; Pulse 99; Resp 18; Pulse Ox 99% ; me1 17:37 Body Mass Index 59.34 (151.95 kg, 160.02 cm) dd2 17:37 Pain Scale: Adult dd2 ED Course: 17:04 Patient arrived in ED. cj3 17:04 Lawrence Edwards DO is Attending Physician. ms3 17:04 Nica Basurto FNP-C is PHCP. corina 17:05 Nica Basurto FNP-C is PHCP. kb 17:05 Lawrence Edwards DO is Attending Physician. kb 17:40 Triage completed. dd2 17:40 Arm band placed on right wrist. dd2 18:19 Chest Pa And Lat (2 Views) XRAY In Process Unspecified. EDMS 18:19 Taina Coker, RN is Primary Nurse. me1 18:20 Patient has correct armband on for positive identification. Bed in low position. Call me1 light in reach. Side rails up X2. Provided Education on: POC. Verbalized understanding. Client placed on continuous cardiac and pulse oximetry monitoring. NIBP monitoring applied. Pulse ox on. NIBP on. 18:20 No provider procedures requiring assistance completed. me1 18:34 BMP Sent. me1 18:34 CBC with Diff Sent. me1 18:34 Missed attempt(s): 22 gauge in left in right antecubital area. me1 18:34 Initial lab(s) drawn, by me, sent to lab. patient refused strep swab as she thinks it me1 will trigger an asthma attack. 20:14 IV discontinued, intact, bleeding controlled, No redness/swelling at site. Pressure me1 dressing applied. Administered Medications: 19:28 Drug: Dexamethasone IM 10 mg IM once Route: IM; Site: left deltoid; me1 20:05 Follow up: Response: No adverse reaction me1 20:05 Drug: Albuterol Inhalation 2.5 mg Inhalation once Route: Inhalation; me1 20:12 Follow up: Response: No adverse reaction; Wheezing diminished me1 20:05 Drug: Ipratropium Inhalation Aerosol 0.5 mg Inhalation once Route: Inhalation; me1 20:12 Follow up: Response: No adverse reaction; Wheezing diminished me1 Medication: 18:20 VIS not applicable for this client. me1 Outcome: 20:05 Discharge ordered by . kb 20:14 Discharged to home ambulatory, me1 20:14 Condition: stable 20:14 Discharge instructions given to patient, Instructed on discharge instructions, follow up and referral plans. medication usage, Demonstrated understanding of instructions, follow-up care, medications, Prescriptions given X 1, 20:15 Patient left the ED. me1 Signatures: Dispatcher [employer] EDMS Nica Basurto, MAXILLOFACIAL PROSTHETICS DENTIST-C MAXILLOFACIAL PROSTHETICS DENTIST-Ckb Lawrence Edwards, DO ms3 Taina Coker RN RN me1 SABINE PACHECO RN RN dd2 Devorah Abrams cj3 Corrections: (The following items were deleted from the chart) 18:39 17:37 Chief complaint: Patient states: WHEEZING, DIFFICULTY BREATHING, COUGHING AND me1 THROAT FEELS SWOLLEN FOR A MONTH BUT HAS WORSENED THE PAST FEW DAYS. PT REPORTS HX OF ASTHMA AND LONG COVID dd2 18:42 18:34 Initial lab(s) drawn, by me, sent to lab. patient refused strep swab as she me1 thinks it will trigger a bag asthma attack, me1
--- NOTE | 2024-12-09 20:06 | EDPHYS ---
Physician Documentation [facility] Name: Lynda Dia Age: 33 yrs Sex: Female : 1990 Arrival Date: 12/09/2024 Time: 17:01 Bed 14 Private MD: ED Physician Lawrence Edwards HPI: 12/09 18:57 This 33 yrs old Female presents to ER via Ambulatory with complaints of kb Breathing Difficulty, Wheezing, Sore Throat. 18:57 Patient is a 33-year-old female who presents for dyspnea, wheezing and sore throat for kb 1 month. States the symptoms have been getting worse. Symptoms worse when she lays down and on exertion. Patient states she has a long COVID so she always has a bit of a cough. No relief with neb treatments.. 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 - Infectious Disease History:: Denies. - Social history:: Smoking status: Patient/guardian denies using tobacco, the patient reports quitting approximately 2 years ago. ROS: 18:56 Constitutional: As per HPI kb Exam: 18:56 Constitutional: This is a well developed, well nourished patient who is awake, alert, kb and in no acute distress. Head/Face: Normocephalic, atraumatic. ENT: Moist Mucous membranes Cardiovascular: Regular rate Abdomen/GI: Soft, non-tender. No distention Skin: Warm, dry with normal turgor. Normal color. MS/ Extremity: Pulses equal, no cyanosis. Neurovascular intact. Full, normal range of motion. Neuro: Awake and alert, GCS 15, oriented to person, place, time, and situation. 18:56 Respiratory: the patient does not display signs of respiratory distress, Respirations: normal, Breath sounds: wheezing: expiratory that is mild, is scattered, Vital Signs: 17:37 BP 137 / 91; Pulse 100; Resp 18; Temp 98.2; Pulse Ox 100% on R/A; Weight 151.95 kg; dd2 Height 5 ft. 3 in. ; Pain 0/10; 18:00 BP 129 / 69; Pulse 94; Resp 19; Pulse Ox 95% ; me1 19:00 BP 125 / 83; Pulse 99; Resp 17; Pulse Ox 95% ; me1 20:00 BP 109 / 80; Pulse 99; Resp 18; Pulse Ox 99% ; me1 17:37 Body Mass Index 59.34 (151.95 kg, 160.02 cm) dd2 17:37 Pain Scale: Adult dd2 MDM: 17:05 Medical Screening Exam initiated 18:57 Differential diagnosis: asthma, Bronchitis pneumonia. Data reviewed: vital signs, nurses notes. Independent interpretation of the following test(s) in the Emergency Department X-Ray: My interpretation is no pneumonia. 20:02 I considered the following discharge prescriptions or medication management in the emergency department I discussed and recommended Over The Counter medications, Antibiotics: At this time antibiotics are not recommended. Counseling: I had a detailed discussion with the patient and/or guardian regarding the historical points, exam findings, and any diagnostic results supporting the discharge/admit diagnosis, lab results, radiology results, the need for outpatient follow up, a family practitioner, to return to the emergency department if symptoms worsen or persist or if there are any questions or concerns that arise at home. 12/09 17:25 Order name: CBC with Diff; Complete Time: 18:50 kb 12/09 17:25 Order name: BMP; Complete Time: 19:49 kb 12/09 17:25 Order name: Chest Pa And Lat (2 Views) XRAY; Complete Time: 18:36 kb 12/09 17:25 Order name: IV Start; Complete Time: 18:34 kb 12/09 18:48 Order name: Labs - recollect needed: recollect green top; Complete Time: 19:12 bd Administered Medications: 19:28 Drug: Dexamethasone IM 10 mg IM once Route: IM; Site: left deltoid; me1 20:05 Follow up: Response: No adverse reaction me1 20:05 Drug: Albuterol Inhalation 2.5 mg Inhalation once Route: Inhalation; me1 20:12 Follow up: Response: No adverse reaction; Wheezing diminished me1 20:05 Drug: Ipratropium Inhalation Aerosol 0.5 mg Inhalation once Route: Inhalation; me1 20:12 Follow up: Response: No adverse reaction; Wheezing diminished me1 Disposition: 18:59 I was immediately available on-site in the Emergency Department for consultation in the ms3 care of the patient. Disposition Summary: 12/09/24 20:05 Discharge Ordered Notes: Location: Home kb Condition: Stable kb Diagnosis - Acute bronchitis, unspecified kb Followup: kb - With: Emergency Department - When: As needed - Reason: Worsening of condition Followup: kb - With: Private Physician - When: 2 - 3 days - Reason: Recheck today's complaints, Continuance of care, Re-evaluation by your physician Discharge Instructions: - Discharge Summary Sheet kb - Acute Bronchitis, Adult, [id number] kb Forms: - Medication Reconciliation Form kb - Antibiotic Education kb - Prescription Opioid Use kb - Patient Portal Instructions kb - Leadership Thank You Letter kb Prescriptions: - Prednisone 20 mg Oral Tablet - take 1 tablet ORAL route once daily for 5 days; 5 tablet; Refills: 0, Product kb Selection Permitted Signatures: Dispatcher [employer] EDMS Nica Basurto, VAMSI WRIGHT-Estrellita Luna Marcus, DO DO ms3 Taina Coker, RN RN me1 SABINE PACHECO RN RN dd2 Corrections: (The following items were deleted from the chart) 18:59 18:57 Patient is a 33-year-old female who presents for dyspnea, wheezing and sore kb throat for 1 month. States the symptoms have been getting worse. Symptoms worse when she lays down and on exertion. Patient states she has a long COVID so she always has a bit of a cough.. kb
== END 2024-12-09 20:15 | disposition home or self-care (01) ==
LOC: ER 17:01
DX: J20.9 Acute bronchitis, unspecified (principal)
CPT/HCPCS: 85025; 80048; 36415; 71046; 96372; 99285; J7613; J7644; J1100